=== PATIENT | male | born 1985 | race Hispanic/Latino ===

== ENCOUNTER 2024-08-17 10:47 | Emergency (ER) | payer OTHER, SELFPAY ==
[2024-08-17 11:04] VITALS: BP 125/72; PULSE 68; RESP 20; TEMP 36.8; O2SAT 99
--- NOTE | 2024-08-17 11:06 | ED.URI ---
HPI - URI/Sore Throat General Chief Complaint: Upper Respiratory Infection Stated Complaint: Sore Throat/Cough Time Seen by Provider: 08/17/24 11:28 Source: patient and RN notes reviewed Mode of arrival: ambulatory Limitations: no limitations History of Present Illness HPI Narrative: 39-year-old male presents concern for one-week history of sore throat, cough, fever, aches, chills, sweats. Reports he has been taking Tylenol, TheraFlu and NyQuil. MD elicited complaint: cough and sore throat Related Data Home Medications ?Medication ?Instructions ?Recorded ?Confirmed ?Last Taken ?Type No Home Medications 08/17/24 Unknown History Allergies Allergy/AdvReac Type Severity Reaction Status Date / Time No Known Allergies Allergy Verified 08/17/24 11:08 Review of Systems Review of Systems: CONSTITUTIONAL: Reports malaise, chills, sweats, fever. EYES: Denies visual changes, redness, or discharge. ENT: Reports rhinorrhea, congestion, and sore throat. CARDIOVASCULAR: Denies chest pain, palpitations, or edema. RESPIRATORY: Reports cough. Denies dyspnea. GASTROINTESTINAL: Denies abdominal pain, nausea, vomiting, diarrhea SKIN: Denies rash or itching. MUSCULOSKELETAL: Reports myalgia. NEUROLOGIC: Denies headache. All systems reviewed & are unremarkable except as noted in HPI and below PMFSH Comments At time of signature, agree with nursing past medical, surgical, social and family history. There is no relevant family history pertinent to the presenting complaint Exam Narrative: GENERAL: Well-appearing, well-nourished, and in no acute distress. HEAD: Normocephalic EYES: PERRLA, conjunctivae clear ENT: Nares clear. Mucous membranes moist. TM pearly hollis with sharp light reflex bilaterally; no tragal tenderness. Oropharynx not erythematous without lesions. Tonsils not enlarged and without exudate, no drooling, no hoarseness, no trismus, uvula midline. NECK: Supple. No lymphadenopathy CHEST: Clear to auscultation, breath sounds equal. No wheezing, rhonchi, rales, or stridor. No respiratory distress, speaks in full sentences. HEART: Regular rate and rhythm. No murmur heard. SKIN: Warm, dry, no rash. NEURO: Alert and oriented x3. PSYCH: Normal mood and affect Course Course Emergency Course: Patient is aware of diagnosis, understands and agrees to treatment plan. Anticipatory guidance given. Patient agrees to follow-up as directed and is aware of reasons to seek care at the emergency department. Portions of this record may have been created with voice recognition software Level of Care: Express Care Visit Vital Signs Vital signs: Reviewed. MDM - URI/Sore Throat MDM Narrative Medical decision making narrative: Differential diagnosis considered: Reynolds virus, strep pharyngitis, allergic rhinitis, upper respiratory tract infection, sinusitis, rhinosinusitis, nasopharyngitis. viral pharyngitis, otitis media, otitis externa, pneumonia, bronchitis, viral cough syndrome, viral syndrome, and influenza. Exam findings show no acute concerns or changes; patient is non-toxic appearing and is in no distress. Patient is appropriate for outpatient treatment and follow-up. Lab Data Attestation: I reviewed the patient's lab results. Critical Care Time Critical Care Time Critical Care Time: No Discharge Plan Discharge Clinical Impression: Upper respiratory infection with cough and congestion Patient Disposition: Home, Self-Care Condition: Stable Instructions: Antibiotic Form, Acute Cough (ED) Additional Instructions: Your rapid COVID and flu tests are negative 1) Please follow-up with your primary care doctor in the next 1-2 days. 2) If you have any worsening of symptoms or any other urgent concerns please go to the ER. 3) Please take medications as prescribed and continue taking your home medications as usual. 4) Please read and follow information included in discharge instructions. Patient Language: Armenian Prescriptions: New azithromycin [Zithromax Z-David] 250 mg tablet See Rx Instructions .ROUTE .COMPLEX Qty: 6 0RF Rx Instructions: take 500 mg today (day 1), then 250 mg for 4 days (days 2-5) methylprednisolone [Medrol (David)] 4 mg tablets,dose pack See Rx Instructions .ROUTE .COMPLEX Qty: 21 0RF Rx Instructions: orally per package directions No Action No Home Medications Follow-up/Referrals: Gavin Hill MD [Primary Care Provider] - Stand Alone Forms: Work/School Release IP Time of Disposition: 11:45
[2024-08-17 11:36] LABS: EDCOVIDSCREEN Negative (Negative); EDINFLUASCREEN Negative (Negative); EDINFLUBSCREEN Negative (Negative); EDSTREPNEGPOS1 Negative (Negative)
== END 2024-08-17 12:00 | disposition home or self-care (01) ==
PROVIDERS: Emergency Provider Nurse Practitioner; PCP Family Medicine Adolescent Medicine
DX: J06.9 Acute upper respiratory infection, unspecified (principal); R05.9 Cough, unspecified; Z20.822 Contact with and (suspected) exposure to COVID-19; K21.9 Gastro-esophageal reflux disease without esophagitis
CPT/HCPCS: 87081; 87426; 87804; 87880; 99213; G0463

== ENCOUNTER 2025-01-28 12:23 | Emergency (ER) | payer OTHER, SELFPAY ==
--- OUTSIDE RECORDS SUMMARY | 2025-01-28 12:26 | XMS_ITS | Data Portability ---
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 Plan of Treatment Reminders Order Date Submit Date Provider Last Modified By Organization Details Last Modified Time Details Appointments None recorded. Lab CBC w/ auto diff 2014 015 [facility], [address] [place] [address], [facility] [address], [place], [address], 5 06:23:55 BMP, serum or plasma 2014 015 [facility], [address] [place] [address], [address], [place], [address], 5 06:23:55 amylase + lipase, serum 2014 015 [facility], [address] [place] [address], [facility] [address], [place], [address], 5 10:35:20 H pylori iga Ab, serum 2014 015 [facility], [address] [place] [address], [address], [place], [address], 5 13:12:13 Referral gastroente rologist referral - 30 y/o with persistent epigastric abd pain despite treatment with PPI for over 2 months 2014 015 [facility] Not available 5 18:33:38 Procedures esophagoga stroduoden oscopy with biopsy (PROC) - LUQ pain/nause a 2014 016 [facility] ([facility]), [address] [place], [address], 6 14:29:49 Surgeries None recorded. Imaging upper GI - persistent epigastric abdominal pain for over 2 months despite treatment with PPI 2014 015 [facility], [address], [place], [address], 5 14:38:32 Medication Orders omeprazole 20 mg tablet,del ayed release 2014 015 [facility], [address] [place] [address], [id number], 5 16:38:38 thiamine HCl (vitamin B1) 100 mg tablet 2014 015 [facility], [address] [place] [address], [id number], 5 14:58:46 omeprazole 20 mg tablet,del ayed release 2014 015 [facility], [address] [place] [address], [id number], 5 14:58:46 omeprazole 20 mg tablet,del ayed release 2014 015 [facility], [address] [place] [address], [id number], 5 14:58:46 omeprazole 20 mg tablet,del ayed release 2014 015 [facility], [address] [place] [address], [id number], 5 17:33:14 omeprazole 20 mg tablet,del ayed release 2014 015 [facility], [address] [place], [place], [id number], 5 15:01:05 Zofran 8 mg tablet 2014 015 [facility], [address] [place], [place], [id number], 5 15:01:05 Patient TargetsNo targets recorded. Patient Instructions Encounter Date Encounter Id Patient Instructions Last Modified By Organization Details Last Modified Time 10/31/2014 [id number] gastritis: instrucciones de cuidado - [gastritis: care instructions] yarauz Not available 10/31/2014 15:01:05 aprenda sobre la dieta l quida absoluta - [learning about clear liquid diets] yarauz Not available 10/31/2014 15:01:05 if worsening symptoms or unable to eat anything secondary to pain to seek reevaluation immediately [email or web address] Not available 10/31/2014 15:01:05 Reason for Referral 30 y/o with persistent epiga stric abd pain despite treatment with PPI for over 2 months Referring Physician: Jarrett Velasco, Family Medicine, Encounter Date: 2015 Results Created Date Observation Date Name Description Value Unit Range Abnormal Flag Note LastModifiedBy Organization Detail LastModifiedTime 11/14/19 15 11/16/2014 H pylor i iga Ab, serum H. pylori, IgA abs <9.0 units 0.0-8. 9 NEGAT NICHOLE <9.0 EQUIV OCAL 9.0 - 11.0 POSIT NICHOLE >11.0 Not Available [facility] ([facility]) [address] [facility], [place], [address], 11/16/2014 13:12:13 11/14/19 15 11/15/2014 amyla se, serum or plasm a amylase, serum 44 U/L 31-124 Not Available [facility] ([facility]) [address] [facility], [place], [address], 11/16/2014 13:12:14 11/14/19 15 11/15/2014 lipas e, serum or plasm a lipase, serum 37 U/L 0-59 Not Available [facility] ([facility]) [address] [place], [address], 11/16/2014 13:12:14 01/04/20 15 01/04/2015 CBC w/ auto diff WBC 5.9 x10e3 /uL 3.4-10 .8 Not Available [facility] ([facility]) [address] [place], [address], 01/04/2015 06:23:54 01/04/20 15 01/04/2015 CBC w/ auto diff RBC 4.88 x10e6 /uL 4.14-5 .80 Not Available [facility] ([facility]) [address] [place], [address], 01/04/2015 06:23:54 01/04/20 15 01/04/2015 CBC w/ auto diff hemoglobin 14.4 g/dL 12.6-1 7.7 Not Available [facility] ([facility]) [address] [place], [address], 01/04/2015 06:23:54 01/04/20 15 01/04/2015 CBC w/ auto diff hematocrit 44.0 % 37.5-5 1.0 Not Available [facility] ([facility]) [address] [place], [address], 01/04/2015 06:23:54 01/04/20 15 01/04/2015 CBC w/ auto diff MCV 90 fL 79-97 Not Available [facility] ([facility]) [address] [place], [address], 01/04/2015 06:23:54 01/04/20 15 01/04/2015 CBC w/ auto diff MCH 29.5 pg 26.6-3 3.0 Not Available [facility] ([facility]) [address] [place], [address], 01/04/2015 06:23:54 01/04/20 15 01/04/2015 CBC w/ auto diff MCHC 32.7 g/dL 31.5-3 5.7 Not Available [facility] ([facility]) [address] [facility], [place], [address], 01/04/2015 06:23:54 01/04/20 15 01/04/2015 CBC w/ auto diff RDW 13.5 % 12.3-1 5.4 Not Available [facility] ([facility]) [address] [facility], [place], [address], 01/04/2015 06:23:54 01/04/20 15 01/04/2015 CBC w/ auto diff platelets 244 x10e3 /uL 150-37 9 Not Available [facility] ([facility]) [address] [facility], [place], [address], 01/04/2015 06:23:54 01/04/20 15 01/04/2015 CBC w/ auto diff neutrophils 57 % Not Available [facility] ([facility]) [address] [facility], [place], [address], 01/04/2015 06:23:54 01/04/20 15 01/04/2015 CBC w/ auto diff lymphs 29 % Not Available [facility] ([facility]) [address] [facility], [place], [address], 01/04/2015 06:23:54 01/04/20 15 01/04/2015 CBC w/ auto diff monocytes 9 % Not Available [facility] ([facility]) [address] [place], [address], 01/04/2015 06:23:54 01/04/20 15 01/04/2015 CBC w/ auto diff eos 4 % Not Available [facility] ([facility]) [address] [place], [address], 01/04/2015 06:23:54 01/04/20 15 01/04/2015 CBC w/ auto diff basos 1 % Not Available [facility] ([facility]) [address] [place], [address], 01/04/2015 06:23:54 01/04/20 15 01/04/2015 CBC w/ auto diff immature cells ADMINISTRATION SPECIALIST Not Available [facility] ([facility]) [address] [place], [address], 01/04/2015 06:23:54 01/04/20 15 01/04/2015 CBC w/ auto diff neutrophils (absolute) 3.4 x10e3 /uL 1.4-7. 0 Not Available [facility] ([facility]) [address] [place], [address], 01/04/2015 06:23:54 01/04/20 15 01/04/2015 CBC w/ auto diff lymphs (absolute) 1.7 x10e3 /uL 0.7-3. 1 Not Available [facility] ([facility]) [address] [place], [address], 01/04/2015 06:23:54 01/04/20 15 01/04/2015 CBC w/ auto diff monocytes(ab solute) 0.5 x10e3 /uL 0.1-0. 9 Not Available [facility] ([facility]) [address] [place], [address], 01/04/2015 06:23:54 01/04/20 15 01/04/2015 CBC w/ auto diff eos (absolute) 0.2 x10e3 /uL 0.0-0. 4 Not Available [facility] ([facility]) [address] [place], [address], 01/04/2015 06:23:54 01/04/20 15 01/04/2015 CBC w/ auto diff baso (absolute) 0.0 x10e3 /uL 0.0-0. 2 Not Available [facility] ([facility]) [address] [place], [address], 01/04/2015 06:23:54 01/04/20 15 01/04/2015 CBC w/ auto diff immature granulocytes 0 % Not Available [facility] ([facility]) [address] [place], [address], 01/04/2015 06:23:54 01/04/20 15 01/04/2015 CBC w/ auto diff immature grans (abs) 0.0 x10e3 /uL 0.0-0. 1 Not Available [facility] ([facility]) [address] [place], [address], 01/04/2015 06:23:54 01/04/20 15 01/04/2015 CBC w/ auto diff NRBC ADMINISTRATION SPECIALIST Not Available [facility] ([facility]) [address] [place], [address], 01/04/2015 06:23:54 01/04/20 15 01/04/2015 CBC w/ auto diff hematology comments: ADMINISTRATION SPECIALIST Not Available [facility] ([facility]) [address] [place], [address], 01/04/2015 06:23:54 01/04/20 15 01/04/2015 BMP, serum or plasm a glucose, serum 104 mg/dL 65-99 high Not Available [facility] ([facility]) [address] [place], [address], 01/04/2015 06:23:55 01/04/20 15 01/04/2015 BMP, serum or plasm a BUN 12 mg/dL 6-20 Not Available [facility] ([facility]) [address] [place], [address], 01/04/2015 06:23:55 01/04/20 15 01/04/2015 BMP, serum or plasm a creatinine, serum 0.74 mg/dL 0.76-1 .27 low Not Available [facility] ([facility]) [address] [facility], [place], [address], 01/04/2015 06:23:55 01/04/20 15 01/04/2015 BMP, serum or plasm a eGFR if nonafricn AM 123 mL/mi n/1.7 3 >59 Not Available [facility] ([facility]) [address] [place] [place], [address], 01/04/2015 06:23:55 01/04/20 15 01/04/2015 BMP, serum or plasm a eGFR if africn AM 142 mL/mi n/1.7 3 >59 Not Available [facility] ([facility]) [address] [place] [place], [address], 01/04/2015 06:23:55 01/04/20 15 01/04/2015 BMP, serum or plasm a BUN/creatini ne ratio 16 8-19 Not Available [facility] ([facility]) [address] [place] [place], [address], 01/04/2015 06:23:55 01/04/20 15 01/04/2015 BMP, serum or plasm a sodium, serum 140 mmol/ L 134-14 4 Not Available [facility] ([facility]) [address] [place], [address], 01/04/2015 06:23:55 01/04/20 15 01/04/2015 BMP, serum or plasm a potassium, serum 4.2 mmol/ L 3.5-5. 2 Not Available [facility] ([facility]) [address] [place], [address], 01/04/2015 06:23:55 01/04/20 15 01/04/2015 BMP, serum or plasm a chloride, serum 102 mmol/ L 97-108 Not Available [facility] ([facility]) [address] [place], [address], 01/04/2015 06:23:55 01/04/20 15 01/04/2015 BMP, serum or plasm a carbon dioxide, total 23 mmol/ L 18-29 Not Available [facility] ([facility]) [address] [facility], [place], [address], 01/04/2015 06:23:55 01/04/20 15 01/04/2015 BMP, serum or plasm a calcium, serum 9.5 mg/dL 8.7-10 .2 Not Available [facility] ([facility]) [address] [facility], [place], [address], 01/04/2015 06:23:55 01/16/20 15 01/15/2015 upper GI No observ ation record ed. [email or web address] [facility] [address] [facility], [place], [address], 01/22/2015 17:14:38 Result Notes None recorded. Problems Name Problem SNOMED Code Status Onset Date Resolution Date Notes Provider Name and Address Organization Details Recorded Time Epigastric pain 08108039 Active Jarrett Velasco [facility] Attn: Accountin g,[address] [facility], [place], [address], [facility] 5 14:58:46 Acute gastritis 01144495 Active Jarrett Velasco [facility] Attn: Accountin g,[address] [facility], [place], [address], [facility] 5 14:58:46 Abdominal pain 11099024 Active Rizwana Salomon MD [address] [place], [address], [facility] 5 16:37:57 Nausea 747069583 Active Rizwana Salomon MD [address] [place], [address], [facility] 5 16:37:57 Problem Notes None recorded. Medical Equipment None Reported. Allergies No known drug allergies Medications Name Sig Start Date Stop Date Status Note LastModified by Organization Details LastModified Time thiamine HCl (vitamin B1) 100 mg tablet Take 1 tablet every day by oral route. 015 active Not Available Not Available Not Avai lable Zofran 8 mg tablet Take 1 tablet every 8 hours by oral route as directed for 2 days. 015 active Not Available Not Available Not Avai lable omeprazole 20 mg capsule,molly yed release TAKE 1 CAPSULE BY MOUTH TWO TIMES A DAY FOR STOMACH active Not Available Not Available No t Available omeprazole 20 mg tablet,delay ed release Take 1 tablet every day by oral route before meals. 015 active Not Available Not Available Not Avai lable Vitals Date Recorded Body weight Body mass index (BMI) Body height Body temperature Systolic And Diastolic Provider Name and Address Organization Details Last Updated DateTime 10/31/2014 70376.79 8275 g 23.4 kg/m2 174.625 cm 98.2 [degF] 124/82 mm[Hg] Jacquie Jerry [facility] 5 14:27:35 Date Recorded Body weight Body mass index (BMI) Body height Body temperature Systolic And Diastolic Provider Name and Address Organization Details Last Updated DateTime 11/13/2014 78653.60 3997 g 23.3 kg/m2 174.625 cm 98.7 [degF] 104/70 mm[Hg] Jacquie Jerry [facility] 5 16:38:28 Date Recorded Body weight Body temperature Body mass index (BMI) Body height Systolic And Diastolic Provider Name and Address Organization Details Last Updated DateTime 2015 04365.65 1685 g 97.8 [degF] 22.4 kg/m2 174.625 cm 116/72 mm[Hg] NATHANIEL Momin [facility] 5 13:02:08 Date Recorded Body height Body mass index (BMI) Body weight Heart rate Systolic And Diastolic Provider Name and Address Organization Details Last Updated DateTime 04/18/2015 172.72 cm 24.2 kg/m2 98944.82 7593 g 54 /min 116/73 mm[Hg] Aleena Beyer [facility] 04/18/2015 15:39:56 Social History Question Answer Notes LastModified by Organizat ion Details LastModified Time Tobacco Smoking Status Never Smoker Jacquie kumar [facility] 10/31/2014 14:27:35 What Is Your Level Of Caffeine Consumption? None [email or web address] Information not available 2015 How Much Tobacco Do You Chew? None Information not available 2015 What Type Of Diet Are You Following? REGULAR [email or web address] Information not available 2015 Education Less Than 8th Grade [email or web address] Information not available 2015 Are There Any Guns Present In Your Home? No Information not available 2015 Hard Of Hearing Or Deaf In One Or Both Ears? No [email or web address] Information not available 2015 Legally Blind In One Or Both Eyes? No [email or web address] Information not available 2015 Marital Status Informatio n not available 2015 Seat Belts Used Routinely Yes [email or web address] Information not available 2015 Smoke Alarm In Home Yes [email or web address] Information not available 2015 How Much Tobacco Do You Smoke? No [email or web address] Information not available 2015 General Stress Level Medium [email or web address] Information not available 2015 Sex: Unknown Functional Status Question Answer Note LastModified by Organizat ion Details LastModified Time What is your level of alcohol consumption? 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 Occasional [email or web address] Information not available 2015 Mental Status None recorded. Family History Relationship Description Onset Age of this Age Resolved Age Notes LastModified by Organization Details LastModified Time Mother Fit and well Not availa ble 04/18/2015 15:40:43 Father Fit and well Not availa ble 04/18/2015 15:40:43 Medical History Condition Response Diabetes N Hyperlipidemia N Heart Disease N Seizures/Epilepsy N Hypertension N Past Encounters Encounter ID Performer Location Encounter Start Date Encounter Closed Date Diagnosis/Indication Diagnosis SNOMED-CT Code Diagnosis ICD10 Code Diagnosis Note [id number] Jason Page MD [facility] [address], [place] [address] 10/31/2014 14:17:27 11/05/2014 17:16:33 Epigastric pain 98314289 Acute gastritis 94509822 [id number] Jason Page MD [facility] [address] [place] [address] 11/13/2014 16:04:26 11/14/2014 17:47:03 Epigastric pain 04135272 take Omeprazole 20mg twice daily 1/2 hour before meals do not go to bed soon after eating avoid spicey foods, or any aggravatin g foods Acute gastritis 54399659 [id number] Jason Page MD [facility] [address] [place] [address] 2015 12:46:35 01/04/2015 14:38:31 Acute gastritis 22716094 Epigastric pain 07765254 take Omeprazole 20mg twice daily 1/2 hour before meals do not go to bed soon after eating avoid spicey foods, or any aggravatin g foods History of alcohol abuse [id number] Rizwana Salomon MD [facility] [address] [place] [address] 04/18/2015 15:03:50 04/22/2015 12:30:58 Abdominal pain 86021960 R10.12 Nausea 870055174 R11.0 Health Concerns Section Related Observation LastModified by Organization Detai ls LastModified Time None Recorded Concern Status LastModified by Organization Details LastModified Time None Recorded Advance Directives Directive None Recorded Payers Insurance Date Sequence Insurance Name Policy Number Policy Lau Covered Member ID Lau Member ID Guarantor Name 10/31/2014 SLIDING FEE SCHEDULE - DISCOUNT Héctor Ochoa 04/14/2017 1 *SELF PAY* Be yahaira Ochoa 04/14/2017 SLIDING FEE SCHEDULE - DISCOUNT Héctor Ochoa Notes Date Note Type Note Provider Name and Address Organization Details Recorded Time 10/31/2014 text/html He use to drink a lot of beers and spicy foods especially in the weekend. However, he has stopped for the last month. He feels hungry but cant eat secondary to getting mid epigastric tenderness. Hi s/s present for 1 week. He has not tried any medications at home. Denies blood in the stool or per os. LOAN Padilla Attn: [address]ing[address] [place], [address], [facility] 10/31/2014 15:01:15 11/13/2014 text/html epigastric pain, gastritis f/u; a little better but still has symptoms especially early am. However, he has only been taking the capsule once daily . Has a lot of heartburn. ELA Padilla Attn: [address]ing[address] [facility], [place], [address], [facility] 11/14/2014 13:44:15 2015 text/html Gastritis F/u- States that he is no longer drinking soda, coffee, or beer. He states that his stomach still hurts a little, but the pain has gotten better. He continues to have mid epigastric abdominal pain despite taking PPI. He doesn't feel its related to any foods as he notices symptoms when stomach empty or with food. He does admit that he drank heavily since he was 12 y/o. He stopped alcohol intake 3 months ago. ELA Padilla Attn: [address]ing[address] [facility], [place], [address], [facility] 2015 14:59:48 04/18/2015 text/html Symptoms better when alcohol use is reduced. UGI revealed GERD and H/H. Better on PPI but sx persist. Rizwana Salomon MD [address] [place], [address], [facility] 04/18/2015 16:38:33
--- OUTSIDE RECORDS SUMMARY | 2025-01-28 12:26 | XMS_ITS | Clinical Summary ---
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 Name Role Phone Unavailable Primary Care Provider Unavailabl e Social History Tobacco Use Types Packs/Day Years Used Date Smoking Tobacco: Never Assessed Sex and Gender Information Value Date Recorded Sex Assigned at Not on file Legal Sex Male 10:03 AM CDT Gender Identity Not on file Sexual Orientation Not on file Plan of Treatment Health Maintenance Due Date Last Done Comments Hepatitis C Virus (HCV) Screening 1984 TdaP Immunization 1984 Hepatitis B Immunization (1 of 3 - 19+ 3-dose series) 01/02/2003 Influenza Immunization (#1) 2024 SARS-COV-2 Immunization (2 - 2023- season) 2024 09/22/2020 Respiratory Syncytial Virus (RSV) Immunization (Adult) (1 - 1-dose 75+ series) 01/02/2059 Meningococcal Immunization (ACWY) Aged Out No longer eligible based on patient's age to complete this topic Pneumococcal Immunization Combined Aged Out No longer eligible based on patient's age to complete this topic Rotavirus Immunization Aged Out No lo nger eligible based on patient's age to complete this topic
--- OUTSIDE RECORDS SUMMARY | 2025-01-28 12:27 | XMS_ITS | Data Portability ---
Author Organization [place] - [facility], Main Office Address [address] [place] [id number] Assessment No assessment recorded. Plan of Treatment Reminders Order Date Submit Date Provider Last Modified By Organization Details Last Modified Time Details Appointments None recorded. Lab CMP, serum or plasma 2024 025 [facility] [address] [place] [address], [id number], 12:20:41 CBC w/ auto diff 2024 025 [facility] ([place]), [address] [place] [address], [address], 12:20:41 TSH, ultra-sensi tive, serum 2024 025 [facility] [place], [address], 12:20:44 HbA1c (hemoglobin A1c), blood 2024 025 [facility] [address] [place] [address], [address], 5 12:20:43 lipid panel, serum 2024 025 [facility] [address] [place] [address], [address], 5 12:20:42 urinalysis, dipstick [address] [facility] [address], [address], [place], [address], 15:00:22 lipase, serum or plasma 2024 025 [facility] ([place]), [address], [place], [address], 12:20:44 Referral None recorded. Procedures None recorded. Surgeries None recorded. Imaging None recorded. Medication Orders omeprazole 20 mg capsule,del ayed release 2024 025 [facility] [address], [address], [place], [place], [id number], 14:36:34 Patient TargetsNo targets recorded. Patient Instructions Encounter Date Encounter Id Patient Instructions Last Modified By Organization Details Last Modified Time 01/22/2025 [id number] headache: care instructions [email or web address] Not available 01/22/2025 14:35:34 high blood pressure: care instructions [email or web address] Not available 01/22/2025 14:36:10 Reason for Referral None Reported. Results Created Date Observation Date Name Description Value Unit Range Abnormal Flag Note LastModifiedBy Organization Detail LastModifiedTime 01/23/2001/23/2025 CBC WITH DIFFE RENTI AL/PL ATELE T WBC 5.7 x10e3 /uL 3.4-10 .8 normal Not Available [facility] ([facility]) [address] [facility], [place], [address], 01/23/2025 12:20:41 01/23/20 25 01/23/2025 CBC WITH DIFFE RENTI AL/PL ATELE T RBC 5.24 x10e6 /uL 4.14-5 .80 normal Not Available [facility] ([facility]) [address] [facility], [place], [address], 01/23/2025 12:20:41 01/23/20 25 01/23/2025 CBC WITH DIFFE RENTI AL/PL ATELE T hemoglobin 16.1 g/dL 13.0-1 7.7 normal Not Available [facility] ([facility]) [address] [place], [address], 01/23/2025 12:20:41 01/23/20 25 01/23/2025 CBC WITH DIFFE RENTI AL/PL ATELE T hematocrit 50.0 % 37.5-5 1.0 normal Not Available [facility] ([facility]) [address] [place], [address], 01/23/2025 12:20:41 01/23/20 25 01/23/2025 CBC WITH DIFFE RENTI AL/PL ATELE T MCV 95 fL 79-97 normal Not Available [facility] ([facility]) [address] [facility], [place], [address], 01/23/2025 12:20:41 01/23/20 25 01/23/2025 CBC WITH DIFFE RENTI AL/PL ATELE T MCH 30.7 pg 26.6-3 3.0 normal Not Available [facility] ([facility]) [address] [place], [address], 01/23/2025 12:20:41 01/23/20 25 01/23/2025 CBC WITH DIFFE RENTI AL/PL ATELE T MCHC 32.2 g/dL 31.5-3 5.7 normal Not Available [facility] ([facility]) [address] [place], [address], 01/23/2025 12:20:41 01/23/20 25 01/23/2025 CBC WITH DIFFE RENTI AL/PL ATELE T RDW 13.2 % 11.6-1 5.4 Not Available [facility] ([facility]) [address] [place], [address], 01/23/2025 12:20:41 01/23/20 25 01/23/2025 CBC WITH DIFFE RENTI AL/PL ATELE T platelets 246 x10e3 /uL 150-45 0 normal Not Available [facility] ([facility]) [address] [facility], [place], [address], 01/23/2025 12:20:41 01/23/20 25 01/23/2025 CBC WITH DIFFE RENTI AL/PL ATELE T neutrophils 56 % not estab. normal Not Available [facility] ([facility]) [address] [facility], [place], [address], 01/23/2025 12:20:41 01/23/20 25 01/23/2025 CBC WITH DIFFE RENTI AL/PL ATELE T lymphs 30 % not estab. normal Not Available [facility] ([facility]) [address] [facility], [place], [address], 01/23/2025 12:20:41 01/23/20 25 01/23/2025 CBC WITH DIFFE RENTI AL/PL ATELE T monocytes 10 % not estab. normal Not Available [facility] ([facility]) [address] [facility], [place], [address], 01/23/2025 12:20:41 01/23/20 25 01/23/2025 CBC WITH DIFFE RENTI AL/PL ATELE T eos 2 % not estab. normal Not Available [facility] ([facility]) [address] [facility], [place], [address], 01/23/2025 12:20:41 01/23/20 25 01/23/2025 CBC WITH DIFFE RENTI AL/PL ATELE T basos 1 % not estab. normal Not Available [facility] ([facility]) [address] [facility], [place], [address], 01/23/2025 12:20:41 01/23/20 25 01/23/2025 CBC WITH DIFFE RENTI AL/PL ATELE T immature cells MASTER CHEF Not Available [facility] ([facility]) [address] [facility], [place], [address], 01/23/2025 12:20:41 01/23/20 25 01/23/2025 CBC WITH DIFFE RENTI AL/PL ATELE T neutrophils (absolute) 3.2 x10e3 /uL 1.4-7. 0 normal Not Available [facility] ([facility]) [address] [place], [address], 01/23/2025 12:20:41 01/23/20 25 01/23/2025 CBC WITH DIFFE RENTI AL/PL ATELE T lymphs (absolute) 1.7 x10e3 /uL 0.7-3. 1 normal Not Available [facility] ([facility]) [address] [place], [address], 01/23/2025 12:20:41 01/23/20 25 01/23/2025 CBC WITH DIFFE RENTI AL/PL ATELE T monocytes(ab solute) 0.6 x10e3 /uL 0.1-0. 9 normal Not Available [facility] ([facility]) [address] [place], [address], 01/23/2025 12:20:41 01/23/20 25 01/23/2025 CBC WITH DIFFE RENTI AL/PL ATELE T eos (absolute) 0.1 x10e3 /uL 0.0-0. 4 normal Not Available [facility] ([facility]) [address] [place], [address], 01/23/2025 12:20:41 01/23/20 25 01/23/2025 CBC WITH DIFFE RENTI AL/PL ATELE T baso (absolute) 0.0 x10e3 /uL 0.0-0. 2 normal Not Available [facility] ([facility]) [address] [place], [address], 01/23/2025 12:20:41 01/23/20 25 01/23/2025 CBC WITH DIFFE RENTI AL/PL ATELE T immature granulocytes 1 % not estab. Not Available [facility] ([facility]) [address] [facility], [place], [address], 01/23/2025 12:20:41 01/23/20 25 01/23/2025 CBC WITH DIFFE RENTI AL/PL ATELE T immature grans (abs) 0.1 x10e3 /uL 0.0-0. 1 Not Available [facility] ([facility]) [address] [facility], [place], [address], 01/23/2025 12:20:41 01/23/20 25 01/23/2025 CBC WITH DIFFE RENTI AL/PL ATELE T NRBC MASTER CHEF Not Available [facility] ([facility]) [address] [facility], [place], [address], 01/23/2025 12:20:41 01/23/20 25 01/23/2025 CBC WITH DIFFE RENTI AL/PL ATELE T hematology comments: MASTER CHEF Not Available [facility] ([facility]) [address] [facility], [place], [address], 01/23/2025 12:20:41 01/23/20 25 01/23/2025 COMP. METAB OLIC PANEL (14) glucose 84 mg/dL 70-99 normal Not Available [facility] ([facility]) [address] [facility], [place], [address], 01/23/2025 12:20:41 01/23/20 25 01/23/2025 COMP. METAB OLIC PANEL (14) BUN 23 mg/dL 6-24 normal Not Available [facility] ([facility]) [address] [facility], [place], [address], 01/23/2025 12:20:41 01/23/20 25 01/23/2025 COMP. METAB OLIC PANEL (14) creatinine 1.00 mg/dL 0.76-1 .27 normal Not Available [facility] ([facility]) [address] [place], [address], 01/23/2025 12:20:41 01/23/20 25 01/23/2025 COMP. METAB OLIC PANEL (14) eGFR 97 mL/mi n/1.7 3 >59 normal Not Available [facility] ([facility]) [address] [facility], [place], [address], 01/23/2025 12:20:41 01/23/20 25 01/23/2025 COMP. METAB OLIC PANEL (14) BUN/creatini ne ratio 23 9-20 above high normal Not Available [facility] ([facility]) [address] [facility], [place], [address], 01/23/2025 12:20:41 01/23/20 25 01/23/2025 COMP. METAB OLIC PANEL (14) sodium 142 mmol/ L 134-14 4 normal Not Available [facility] ([facility]) [address] [facility], [place], [address], 01/23/2025 12:20:41 01/23/20 25 01/23/2025 COMP. METAB OLIC PANEL (14) potassium 4.7 mmol/ L 3.5-5. 2 normal Not Available [facility] ([facility]) [address] [facility], [place], [address], 01/23/2025 12:20:41 01/23/20 25 01/23/2025 COMP. METAB OLIC PANEL (14) chloride 104 mmol/ L 96-106 normal Not Available [facility] ([facility]) [address] [facility], [place], [address], 01/23/2025 12:20:41 01/23/20 25 01/23/2025 COMP. METAB OLIC PANEL (14) carbon dioxide, total 21 mmol/ L 20-29 normal Not Available [facility] ([facility]) [address] [facility], [place], [address], 01/23/2025 12:20:41 01/23/20 25 01/23/2025 COMP. METAB OLIC PANEL (14) calcium 9.9 mg/dL 8.7-10 .2 normal Not Available [facility] ([facility]) [address] [place], [address], 01/23/2025 12:20:41 01/23/20 25 01/23/2025 COMP. METAB OLIC PANEL (14) protein, total 7.7 g/dL 6.0-8. 5 normal Not Available [facility] ([facility]) [address], [place], [address], 01/23/2025 12:20:41 01/23/20 25 01/23/2025 COMP. METAB OLIC PANEL (14) albumin 4.9 g/dL 4.1-5. 1 normal Not Available [facility] ([facility]) [address] [place], [address], 01/23/2025 12:20:41 01/23/20 25 01/23/2025 COMP. METAB OLIC PANEL (14) globulin, total 2.8 g/dL 1.5-4. 5 Not Available [facility] ([facility]) [address] [place] [place], [address], 01/23/2025 12:20:41 01/23/20 25 01/23/2025 COMP. METAB OLIC PANEL (14) bilirubin, total 0.5 mg/dL 0.0-1. 2 normal Not Available [facility] ([facility]) [address] [place], [address], 01/23/2025 12:20:41 01/23/20 25 01/23/2025 COMP. METAB OLIC PANEL (14) alkaline phosphatase 95 IU/L 44-121 normal Not Available [facility] ([facility]) [address] [facility] [place], [address], 01/23/2025 12:20:41 01/23/20 25 01/23/2025 COMP. METAB OLIC PANEL (14) AST (SGOT) 36 IU/L 0-40 normal Not Available [facility] ([facility]) [address] [place], [address], 01/23/2025 12:20:41 01/23/20 25 01/23/2025 COMP. METAB OLIC PANEL (14) ALT (SGPT) 40 IU/L 0-44 normal Not Available [facility] ([facility]) [address] [place], [address], 01/23/2025 12:20:41 01/23/20 25 01/23/2025 LIPID PANEL W/ CHOL/ HDL RATIO cholesterol, total 224 mg/dL 100-19 9 above high normal Not Available [facility] ([facility]) [address] [place], [address], 01/23/2025 12:20:42 01/23/20 25 01/23/2025 LIPID PANEL W/ CHOL/ HDL RATIO triglyceride s 109 mg/dL 0-149 normal Not Available [facility] ([facility]) [address] [place], [address], 01/23/2025 12:20:42 01/23/20 25 01/23/2025 LIPID PANEL W/ CHOL/ HDL RATIO HDL cholesterol 61 mg/dL >39 normal Not Available [facility] ([facility]) [address] [place], [address], 01/23/2025 12:20:42 01/23/20 25 01/23/2025 LIPID PANEL W/ CHOL/ HDL RATIO VLDL cholesterol juaquin 19 mg/dL 5-40 Not Available [facility] ([facility]) [address] [place], [address], 01/23/2025 12:20:42 01/23/20 25 01/23/2025 LIPID PANEL W/ CHOL/ HDL RATIO LDL chol calc ([facility]) 144 mg/dL 0-99 above high normal Not Available [facility] ([facility]) [address] [place], [address], 01/23/2025 12:20:42 01/23/20 25 01/23/2025 LIPID PANEL W/ CHOL/ HDL RATIO LDL calc comment: MASTER CHEF Not Available [facility] ([facility]) [address] [place], [address], 01/23/2025 12:20:42 01/23/20 25 01/23/2025 LIPID PANEL W/ CHOL/ HDL RATIO T. chol/HDL ratio 3.7 ratio 0.0-5. 0 T. Chol/ HDL Ratio Men Women 1/2 Avg.R isk 3.4 3.3 Avg.R isk 5.0 4.4 2X Avg.R isk 9.6 7.1 3X Avg.R isk 23.4 11.0 Not Available [facility] ([facility]) [address] [place], [address], 01/23/2025 12:20:42 01/23/20 25 01/23/2025 HEMOG LOBIN A1C hemoglobin A1C 5.8 % 4.8-5. 6 above high normal Predi abete s: 5.7 - 6.4 Diabe feroz: >6.4 Glyce gino contr ol for adult s with diabe feroz: <7.0 Not Available [facility] ([facility]) [address] [place], [address], 01/23/2025 12:20:43 01/23/20 25 01/23/2025 TSH TSH 2.080 uIU/m L 0.450- 4.500 normal Not Available [facility] ([facility]) [address] [place], [address], 01/23/2025 12:20:43 01/23/20 25 01/23/2025 LIPAS E lipase 28 U/L 13-78 normal Not Available [facility] ([facility]) [address] [place], [address], 01/23/2025 12:20:44 01/23/20 25 01/22/2025 urina lysis , dipst ick Color Yellow Not Available [facility] [address], [place], [address], 01/22/2025 14:18:59 01/23/20 25 01/22/2025 urina lysis , dipst ick Appearance Clear Not Available [facility] [address], [place], [address], 01/22/2025 14:18:59 01/23/20 25 01/22/2025 urina lysis , dipst ick Leukocytes negati ve Not Available [facility] [address], [place], [address], 01/22/2025 14:18:59 01/23/20 25 01/22/2025 urina lysis , dipst ick Nitrites negati ve Not Available [facility] [address], [place], [address], 01/22/2025 14:18:59 01/23/20 25 01/22/2025 urina lysis , dipst ick Urobilinogen Normal (0.2) Not Available [facility] [address], [place], [address], 01/22/2025 14:18:59 01/23/20 25 01/22/2025 urina lysis , dipst ick Protein negati ve Not Available [facility] [address] [facility], [place], [address], 01/22/2025 14:18:59 01/23/20 25 01/22/2025 urina lysis , dipst ick pH 6.5 Not Available [facility] [address] [facility], [place], [address], 01/22/2025 14:18:59 01/23/20 25 01/22/2025 urina lysis , dipst ick Blood negati ve Not Available [facility] [address] [facility], [place], [address], 01/22/2025 14:18:59 01/23/2001/22/2025 urina lysis , dipst ick Specific [place] 1.015 Not Available [facility] [address] [facility], [place], [address], 01/22/2025 14:18:59 01/23/20 25 01/22/2025 urina lysis , dipst ick Ketone negati ve Not Available [facility] [address] [facility], [place], [address], 01/22/2025 14:18:59 01/23/20 25 01/22/2025 urina lysis , dipst ick Bilirubin negati ve Not Available [facility] [address] [facility], [place], [address], 01/22/2025 14:18:59 01/23/2001/22/2025 urina lysis , dipst ick Glucose negati ve Not Available [facility] [address] [facility], [place], [address], 01/22/2025 14:18:59 Result Notes None recorded. 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 Procedures Surgical History Date Name Laterality Status Provider Name and Address Organization Details Recorded Time no surgical history completed Marnie Willson MD [address], [place], [address], [facility] 01/22/2025 14:16:25 Imaging Results None recorded. Procedure Notes None recorded. Medical Equipment None Reported. Allergies No known drug allergies Medications Name Sig Start Date Stop Date Status Note LastModified by Organization Details LastModified Time cetirizine 10 mg tablet TAKE 1 TABLET BY MOUTH DAILY 01/22 completed Not Available Not Available Not Available omeprazole 20 mg capsule,del ayed release Take 1 capsule every day by oral route. 2024 active Not Available Not Available Not Avai lable levofloxaci n 500 mg tablet TAKE 1 TABLET BY MOUTH DAILY 01/22 completed Not Available Not Available Not Available methylpredn isolone 4 mg tablets in a dose pack FOLLOW PACKAGE DIRECTION S 01/22 completed Not Available Not Available Not Available Vitals Date Recorded Body weight Body mass index (BMI) Body height Respiratory rate Body temperature Oxygen saturation Oxygen saturation in Arterial blood by Pulse oximetry Heart rate Systolic And Diastolic Provider Name and Address Organization Details Last Updated DateTime 5 [address].9 6 g 25.6 kg/m2 172.72 cm 20 /min 97.8 [degF] 98 % 98 % 80 /min 142/84 mm[Hg] Shanell Farmer er [facility] 14:05:22 Social History Question Answer Notes LastModified by Organizat ion Details LastModified Time Tobacco Smoking Status Former Smoker SocialHist oryQuestio n: 'Tobacco Use/Smokin g'; SocialHist oryRespons e: 'Are you a: light tobacco smoker'; Shanell Garcia null, [place] - [facility] 01/22/2025 14:03:41 What Is Your Level Of Caffeine Consumption? Occasional [email or web address] Information not available 01/22/2025 What Type Of Diet Are You Following? REGULAR [email or web address] Information not available 01/22/2025 When Did You Quit Smoking? 1-5yearssincel louise Quit 2022 [email or web address] Information not available 01/22/2025 Cigar Smoking No Informat ion not available 01/22/2025 What Was The Date Of Your Most Recent Tobacco Screening? 01/22/2025 Information not available 01/22/2025 What Is Your Current Pack Years? 10-19packyears [email or web address] Information not available 01/22/2025 What Is Your Relationship Status? [email or web address] Information not available 01/22/2025 How Much Tobacco Do You Smoke? 0.25 PPD Information not available 01/22/2025 Has Tobacco Cessation Counseling Been Provided? Yes Information not available 01/22/2025 On What Date Was Tobacco Cessation Counseling Provided? 01/22/2025 Information not available 01/22/2025 How Many Years Have You Smoked Tobacco? 25 Information not available 01/22/2025 Sex: Unknown Functional Status Question Answer Note LastModified by Organizat ion Details LastModified Time How many times per week do you consume alcohol? 1-2 times per week 3-4 beers once or twice a week--was a heavier drinker, but cut back 06/2024 [email or web address] Information not available 01/22/2025 Do you use any illicit or recreational drugs? No [email or web address] Information not available 01/22/2025 Do you or have you ever used any other forms of tobacco or nicotine? No SocialHist oryQuestio n: 'Tobacco use other than smoking'; SocialHist oryRespons e: 'Are you an other tobacco user? No'; [email or web address] Information not available 07/12/2024 What is your level of alcohol consumption? Occasional [email or web address] Information not available 01/22/2025 Mental Status None recorded. Family History Nothing Reported Notes:Paternal Grandmother d eceased, lung Maternal grandfather, throat cancer maternal grandmother, alive, diabetes mother, alive, healthy father, alive, migraines 1 brother (Boy) healthy 2 sisters - healthy 4 sons, healthy Medical History No medical history recorded. Past Encounters Encounter ID Performer Location Encounter Start Date Encounter Closed Date Diagnosis/Indication Diagnosis SNOMED-CT Code Diagnosis ICD10 Code Diagnosis Note [id number] Marnie Willson MD [facility] [address] [place] [address] 01/22/2025 14:00:06 01/22/2025 14:45:38 Physical examination 9263348 Z00.00 Routine age-approp riate anticipato ry guidance was given, including discussion of recommende d screening tests and immunizati ons. He reports he is up-to-date on tetanus. Will check labs today and I will call him with results. His blood pressure is elevated today and is consistent with his recent reading at a local pharmacy. He is given a handout on hypertensi on and a low-sodium diet and advised to purchase or borrow a blood pressure cuff to monitor his blood pressure more closely at home over the next few weeks. I discussed signs of acutely worsening symptoms and when it would be appropriat e to go to the emergency room instead.He is given a refill of omeprazole and I discussed lifestyle changes to reduce GERD symptoms as well. He will try to track down where he had prior imaging, as he most likely has a hiatal hernia.He voiced understand ing and agreement with plan. Questions were answered to his satisfacti on. Heartburn 68379217 R12 Acute headache 002644445 R51.9 Health Concerns Section Related Observation LastModified by Organization Detai ls LastModified Time None Recorded Concern Status LastModified by Organization Details LastModified Time None Recorded Advance Directives Directive None Recorded Payers Insurance Date Sequence Insurance Name Policy Number Policy Lau Covered Member ID Lau Member ID Guarantor Name 01/22/2025 [facility] [employer] - [employer] [facility] 42 AND 110 - ALL - PLAN PARTICIPANT - (MOVED-BILLED) UNKNOWN Héctor Ochoa NO_INS_NU ELYSE[place]_DAVID Weaver 01/22/2025 [place] [id number] AND 110 - ALL - PLAN PARTICIPANT - (MOVED-BILLED) UNKNOWN Héctor Ochoa NO_INS_NU [place]BER_AVAI LABLE [place] 01/22/2025 [facility] 42 AND 110 - ALL - PLAN PARTICIPANT - (MOVED-BILLED) UNKNOWN Héctor Ochoa Weaver UNKNOWN [place] Weaver 01/22/2025 [facility] 42 AND 110 - ALL - PLAN PARTICIPANT - (MOVED-BILLED) UNKNOWN Héctor Ochoa Weaver UNKNOWN [place] Weaver 01/22/2025 [facility] 42 AND 110 - ALL - PLAN PARTICIPANT - (MOVED-BILLED) UNKNOWN Héctor Ochoa Weaver UNKNOWN [place] Weaver 01/22/2025 [facility] 42 AND 110 - ALL - PLAN PARTICIPANT - (MOVED-BILLED) UNKNOWN Héctor Ochoa Weaver UNKNOWN [place] 01/22/2025 1 *SELF PAY* UNKNOWN [place] UNKNOWN [place] 01/22/2025 1 *SELF PAY* UNKNOWN [place] UNKNOWN [place] 01/22/2025 [facility] 42 AND 110 - ALL - PLAN PARTICIPANT - (MOVED-BILLED) UNKNOWN Héctor Ochoa Weaver UNKNOWN [place] 01/22/2025 [place] [id number] AND 110 - ALL - PLAN PARTICIPANT - (MOVED-BILLED) UNKNOWN [place] UNKNOWN [place] 01/22/2025 [place] [id number] AND 110 - ALL - PLAN PARTICIPANT - (MOVED-BILLED) UNKNOWN Héctor Ochoa Weaver NO_INS_NU MBER_AVAI LABANA LILIA [place] 01/22/2025 [facility] 42 AND 110 - ALL - PLAN PARTICIPANT - (MOVED-BILLED) UNKNOWN Héctor Championrera UNKNOWN Héctor Weaver Notes Date Note Type Note Provider Name and Address Organization Details Recorded Time 01/22/2025 text/html He is here for a physical exam. He has had a headache for the past week. He went to a pharmacy a few days ago and checked his blood pressure and it was 142/80. He has no prior history of hypertension. He does have a history of migraines when he was younger but has been several years since he had a migraine. He denies any change in diet, exercise, or stress level. He does not take any supplements and denies recent use of alcohol or any history of illicit drugs. He had eliminated caffeine several weeks prior to onset of headache. He has occasional lightheadedness but denies rotary vertigo, syncope, blurred or double vision. He gets some light sensitivity when the headache is severe, but it is currently dull and mild. The headache will start in the morning and is typically frontal and right sided and then radiates over the entire head. He denies nausea, vomiting, mental status changes, numbness, tingling, or weakness with these headaches. He has tried [id number] Tylenol with partial relief. He denies history of trauma or recent travel or sick contacts. He denies nasal congestion, facial pressure, or URI symptoms. He rates the pain as mild and has never had to miss work for the headache. The headache does not keep him up at night or wake him from sleep.He has a history of GERD and was on omeprazole but ran out of this several months ago and has had more frequent breakthrough heartburn. He has been trying [id number] Tums with only partial relief. He had some sort of imaging test several years ago and was told he had some kind of hernia. Marnie Willson MD [address], [place], [address], [place] [facility] 01/28/2025 10:01:15
[2025-01-28 12:29] VITALS: BP 131/91; PULSE 50; RESP 16; TEMP 36.4; O2SAT 98
[2025-01-28 12:50] VITALS: BP 116/72; PULSE 62; RESP 20; O2SAT 100
--- NOTE | 2025-01-28 12:50 | ECG_ITS ---
Test Date: 2025-01-28 13:03:57 Measurements Intervals [place] Rate: 54 P: 68 VT: 195 QRS: 49 QRSD: 105 T: 28 QT: 416 QTc: 394 Interpretive Statements SINUS BRADYCARDIA OTHERWISE UNREMARKABLE ELECTROCARDIOGRAM No previous ECG available for comparison Electronically Signed On 01-29-2025 09:57:35 CDT by Brett Stevens M.D.
[2025-01-28 13:29] LABS: Hematocrit 43.3 % (42.0-52.0); Hemoglobin 14.4 g/dL (14.0-18.0); Immature Granulocyte Percent A 0.4 % (0-0.5); Lymphocytes Absolute Auto 1.78 K/mm3 (0.9-3.2); Mean Corpuscular HGB Conc 33.3 g/dl (32-36); Mean Corpuscular Hemoglobin 30.8 pg (26-34); Mean Corpuscular Volume 92.7 fl (80-100); Nucleated Red Blood Cells Absolute Auto 0.000 K/mm3 (0.0-0.012); Nucleated Red Blood Cells Perc 0.0 % (0.0-0.2); Platelet Count Result 200 k/mm3 (150-375); Red Blood Count 4.67 M/mm3 (4.6-6.20); White Blood Count 5.3 K/mm3 (4.5-10.0)
--- OUTSIDE RECORDS SUMMARY | 2025-01-28 13:31 | XMS_ITS | Clinical Summary ---
Author Organization [facility] Address [address] [place] [id number] Care Team Providers Care Rigging Engineer Name Role Phone Unavailable Primary Care Provider [...]
[2025-01-28 13:40] LABS: Alanine Aminotransferase 53 U/L (6-50); Albumin Level 4.6 g/dL (3.5-5.1); Alkaline Phosphatase 68 U/L (38-126); Anion Gap 7 mmol/L (4-12); Aspartate Amino Transferase 46 U/L (17-59); Bilirubin,Total 0.5 mg/dL (0.2-1.3); Blood Urea Nitrogen 15 mg/dL (9-20); Calcium 9.2 mg/dL (8.4-10.2); Carbon Dioxide 27 mmol/L (22-30); Chloride 105 mmol/L (98-107); Estimated CRCL calculation 105 ml/min; Estimated Glomerular Filt Rate > 60; Glucose 105 mg/dL (65-110); Potassium 4.4 mmol/L (3.4-5.0); Sodium 139 mmol/L (137-145); Total Protein 7.8 g/dL (6.3-8.2)
[2025-01-28] MEDS: METOCLOPRAMIDE HCL INJ 10 MG/2 ML VIAL IV PUSH (13:59)
[2025-01-28] MEDS: LACTATED RINGERS 1,000 ML 999 ML IV CONT (13:59)
[2025-01-28] MEDS: MAGNESIUM SULF 2 GM/WATER 50ML 2 GM/50 ML BAG IVPB (13:59)
[2025-01-28] MEDS: dexAMETHasone SOD PHOS INJ 10 MG/ML 1 ML VIAL BY MOUTH (14:00)
[2025-01-28] MEDS: KETOROLAC 15 MG/ML VIAL (*BKC) IV PUSH (14:00)
--- NOTE | 2025-01-28 14:13 | ED_ITS ---
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 He talked to his partner, he is continuing to have this headache and earlier had an area in his left eye that looked like a spot, similar to his prior ocular migraines, which has since resolved. His doctor asked him to be evaluated in the emergency room. Related Data Allergies Allergy/AdvReac Type Severity Reaction Status Date / Time No Known Allergies Allergy Verified 01/28/25 12:32 Review of Systems 2 Review of Systems: All systems reviewed & are unremarkable except as noted in HPI and below Exam 2 Narrative: EXAMINATION OF ORGAN SYSTEMS/BODY AREAS: Constitutional: Vital signs per nursing GENERAL:[No acute distress, non-toxic appearing.] HEAD: Normal with no signs of head trauma. EYES: EOMI, conjunctiva normal, PERRL ENT: Hearing grossly intact LUNGS: Nonlabored breathing. HEART: [Regular rate and rhythm] ABD: [Soft], [nontender to palpation] EXT: Normal range of motion SKIN: [No rashes or lesions.] NEURO: [Alert and oriented x 3. No focal sensory or strength deficits.] Ambulating with normal steady gait. No facial droop. Speaking with clear speech. PSYCH: Normal affect Course Vital Signs Vital signs: Vital Signs Temperature 97.6 F 01/28/25 12:29 Pulse Rate 50 L 01/28/25 12:29 Respiratory Rate 16 01/28/25 12:29 Blood Pressure 131/91 H 01/28/25 12:29 Pulse Oximetry 98 01/28/25 12:29 Temperature 97.6 F 01/28/25 12:29 Pulse Rate 55 L 01/28/25 14:56 Respiratory Rate 16 01/28/25 14:56 Blood Pressure 112/74 01/28/25 14:56 Pulse Oximetry 100 01/28/25 14:56 MDM - Dizziness MDM Narrative Medical decision making narrative: 40-year-old male presents to the emergency department for headache. Patient is hemodynamically stable. No focal neurological or cranial nerve deficits on exam. No meningeal signs. The headache was gradual in onset, it is not exertional and does not appear consistent with subarachnoid hemorrhage or intracranial bleeding. No trauma. Feels like ocular migraine he has had several times in the past. Patient is given headache cocktail including Reglan, Benadryl, Toradol. IV fluids, steroids, magnesium given to try to help break the migraine. On reevaluation, the patient feels significantly better with the headache resolved. No neurological deficits. Patient is comfortable going home for outpatient follow-up with primary care physician and/or neurology and provided with strict return precautions, especially for worsening headaches, neck pain/stiffness, fever or weakness, numbness/tingling or persistent vomiting. Lab Data 01/28/25 13:22 01/28/25 13:22 Labs: Lab Results 01/28/25 Range/Units 13:22 WBC 5.3 (4.5-10.0) K/mm3 RBC 4.67 (4.6-6.20) M/mm3 Hgb 14.4 (14.0-18.0) g/dL Hct 43.3 (42.0-52.0) % MCV 92.7 (80-100) fl MCH 30.8 (26-34) pg MCHC 33.3 (32-36) g/dl RDW 13.1 (11.5-14.5) % Plt Count 200 (150-375) k/mm3 MPV 10.4 (7.4-10.4) fl Immature Gran % (Auto) 0.4 (0-0.5) % Neut % (Auto) 54.8 (45.5-73.1) % Lymph % (Auto) 33.9 (18.3-44.2) % [place] % (Auto) 8.4 (2.6-8.5) % Eos % (Auto) 1.9 (0-4.4) % Baso % (Auto) 0.6 (0.2-1.2) % Lymph # (Auto) 1.78 (0.9-3.2) K/mm3 [place] # (Auto) 0.4 (0.1-0.6) K/mm3 Eos # (Auto) 0.1 (0-0.3) K/mm3 Baso # (Auto) 0.0 (0.0-0.1) K/mm3 Abs Immat Gran (auto) 0.02 (0.00-0.031) K/mm3 Absolute Neuts (auto) 2.9 (1.3-6.7) K/mm3 Absolute Nucleated RBC 0.000 (0.0-0.012) K/mm3 Nucleated RBC % 0.0 (0.0-0.2) % Sodium 139 (137-145) mmol/L Potassium 4.4 (3.4-5.0) mmol/L Chloride 105 (98-107) mmol/L Carbon Dioxide 27 (22-30) mmol/L Anion Gap 7 (4-12) mmol/L BUN 15 (9-20) mg/dL Creatinine 0.78 (0.7-1.3) mg/dL Estim Creat Clear Calc 105 ml/min Estimated GFR > 60 (59 - ) Glucose 105 (65-110) mg/dL Calcium 9.2 (8.4-10.2) mg/dL Total Bilirubin 0.5 (0.2-1.3) mg/dL AST 46 (17-59) U/L ALT 53 H (6-50) U/L Alkaline Phosphatase 68 (38-126) U/L Total Protein 7.8 (6.3-8.2) g/dL Albumin 4.6 (3.5-5.1) g/dL Discharge Plan Discharge Clinical Impression: Migraine Patient Disposition: Home Condition: Stable Instructions: Migraine Headache (ED), Ocular Migraine (ED) Additional Instructions: Please follow up with your doctor and with neurologist; you can always return for any further issues especially if your headache comes back, if you have any new changes to your vision or difficulty walking or speaking or anything else concerning. Patient Language: Liberian Prescriptions: No Action levofloxacin 500 mg tablet 500 mg PO DAILY Qty: 10 0RF Follow-up/Referrals: Hardy Hutton MD [Physician] - 2 Days Gavin Hill MD [Primary Care Provider] -
[2025-01-28 14:56] VITALS: BP 112/74; PULSE 55; RESP 16; O2SAT 100
[2025-01-28 15:43] VITALS: BP 123/73; PULSE 60; RESP 20; O2SAT 100
== END 2025-01-28 16:01 | disposition home or self-care (01) ==
PROVIDERS: Emergency Provider Emergency Medicine; PCP Family Medicine Adolescent Medicine
DX: G43.909 Migraine, unspecified, not intractable, without status migrainosus (principal)
CPT/HCPCS: 36415; 80053; 85025; 93005; 96365; 96366; 96375; 99284; J1100; J1200; J1885; J2765; J3475; J7120

== ENCOUNTER 2025-02-04 03:37 | Emergency (ER) | payer OTHER, SELFPAY ==
[2025-02-04] VITALS (7 sets, daily range): BP systolic 118–133; BP diastolic 77–78; PULSE 55–69; RESP 15–20; TEMP 36.6; O2SAT 99–100
--- OUTSIDE RECORDS SUMMARY | 2025-02-04 03:40 | XMS_ITS | Clinical Summary ---
Author Organization [facility] Address [address] [place] [id number] Care Team Providers Care Technical Illustrations Map Inker Name Role Phone Unavailable Primary Care Provider [...]
--- OUTSIDE RECORDS SUMMARY | 2025-02-04 03:40 | XMS_ITS | Data Portability ---
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 Plan of Treatment Reminders Order Date Submit Date Provider Last Modified By Organization Details Last Modified Time Details Appointments None recorded. Lab CBC w/ auto diff 2014 015 [facility], [address] [place] [address], [facility] [address], [place], [address], 5 06:23:55 BMP, serum or plasma 2014 015 [facility], [address] [place] [address], [address], [place], [address], 5 06:23:55 amylase + lipase, serum 2014 015 [email or web address] [facility], [address] [place] [address], [facility] [address], [place], [address], 5 10:35:20 H pylori iga Ab, serum 2014 015 [facility], [address] [place] [address], [address], [place], [address], 5 13:12:13 Referral gastroente rologist referral - 30 y/o with persistent epigastric abd pain despite treatment with PPI for over 2 months 2014 015 [facility] Not available 5 18:33:38 Procedures esophagoga stroduoden oscopy with biopsy (PROC) - LUQ pain/nause a 2014 016 [email or web address] [facility] ([facility]), [address] [place], [address], 6 14:29:49 Surgeries None recorded. Imaging upper GI - persistent epigastric abdominal pain for over 2 months despite treatment with PPI 2014 015 [facility], [address], [place], [address], 5 14:38:32 Medication Orders omeprazole 20 mg tablet,del ayed release 2014 015 [facility], [address] [place] [address], [id number], 5 16:38:38 thiamine HCl (vitamin B1) 100 mg tablet 2014 015 [facility], [address] [place] [address], [id number], 5 14:58:46 omeprazole 20 mg tablet,del ayed release 2014 015 [facility], [address] [place] [address], [id number], 5 14:58:46 omeprazole 20 mg tablet,del ayed release 2014 015 [facility], [address] [place] [address], [id number], 5 14:58:46 omeprazole 20 mg tablet,del ayed release 2014 015 [facility], [address] [place] [address], [id number], 5 17:33:14 omeprazole 20 mg tablet,del ayed release 2014 015 [facility], [address] [place], [place], [id number], 5 15:01:05 Zofran 8 mg tablet 2014 015 [facility], [address] [place], [place], [id number], 5 15:01:05 Patient TargetsNo targets recorded. Patient Instructions Encounter Date Encounter Id Patient Instructions Last Modified By Organization Details Last Modified Time 10/31/2014 [id number] gastritis: instrucciones de cuidado - [gastritis: care [...] 11.0 POSIT NICHOLE >11.0 Not Available [facility] ([facility]) [address] [facility], [place], [address], 11/16/2014 13:12:13 11/14/19 15 11/15/2014 amyla se, serum or plasm a amylase, serum 44 U/L 31-124 Not Available [facility] ([facility]) [address] [facility], [place], [address], 11/16/2014 13:12:14 11/14/19 15 11/15/2014 lipas e, serum or plasm a lipase, serum 37 U/L 0-59 Not Available [facility] ([facility]) [address] [place], [address], 11/16/2014 13:12:14 01/04/20 15 01/04/2015 CBC w/ auto diff WBC 5.9 x10e3 /uL 3.4-10 .8 Not Available [facility] ([facility]) [address] [place], [address], 01/04/2015 06:23:54 01/04/20 15 01/04/2015 CBC w/ auto diff RBC 4.88 x10e6 /uL 4.14-5 .80 Not Available [facility] ([facility]) [address] [place], [address], 01/04/2015 06:23:54 01/04/20 15 01/04/2015 CBC w/ auto diff hemoglobin 14.4 g/dL 12.6-1 7.7 Not Available [facility] ([facility]) [address] [place], [address], 01/04/2015 06:23:54 01/04/20 15 01/04/2015 CBC w/ auto diff hematocrit 44.0 % 37.5-5 1.0 Not Available [facility] ([facility]) [address] [place], [address], 01/04/2015 06:23:54 01/04/20 15 01/04/2015 CBC w/ auto diff MCV 90 fL 79-97 Not Available [facility] ([facility]) [address] [place], [address], 01/04/2015 06:23:54 01/04/20 15 01/04/2015 CBC w/ auto diff MCH 29.5 pg 26.6-3 3.0 Not Available [facility] ([facility]) [address] [place], [address], 01/04/2015 06:23:54 01/04/20 15 01/04/2015 CBC w/ auto diff MCHC 32.7 g/dL 31.5-3 5.7 Not Available [facility] ([facility]) [address] [facility], [place], [address], 01/04/2015 06:23:54 01/04/20 15 01/04/2015 CBC w/ auto diff RDW 13.5 % 12.3-1 5.4 Not Available [facility] ([facility]) [address] [facility], [place], [address], 01/04/2015 06:23:54 01/04/20 15 01/04/2015 CBC w/ auto diff platelets 244 x10e3 /uL 150-37 9 Not Available [facility] ([facility]) [address] [facility], [place], [address], 01/04/2015 06:23:54 01/04/20 15 01/04/2015 CBC w/ auto diff neutrophils 57 % Not Available [facility]) [address] [facility], [place], [address], 01/04/2015 06:23:54 01/04/20 15 01/04/2015 CBC w/ auto diff lymphs 29 % Not Available [facility] ([facility]) [address] [facility], [place], [address], 01/04/2015 06:23:54 01/04/20 15 01/04/2015 CBC w/ auto diff monocytes 9 % Not Available [facility] ([facility]) [address] [place], [address], 01/04/2015 06:23:54 01/04/20 15 01/04/2015 CBC w/ auto diff eos 4 % Not Available [facility] ([facility]) [address] [place], [address], 01/04/2015 06:23:54 01/04/20 15 01/04/2015 CBC w/ auto diff basos 1 % Not Available [facility] ([facility]) [address] [place], [address], 01/04/2015 06:23:54 01/04/20 15 01/04/2015 CBC w/ auto diff immature cells DISABILITY ADVOCATE Not Available [facility] ([facility]) [address] [place], [address], 01/04/2015 06:23:54 01/04/20 15 01/04/2015 CBC w/ auto diff neutrophils (absolute) 3.4 x10e3 /uL 1.4-7. 0 Not Available [facility] ([facility]) [address] [place], [address], 01/04/2015 06:23:54 01/04/20 15 01/04/2015 CBC w/ auto diff lymphs (absolute) 1.7 x10e3 /uL 0.7-3. 1 Not Available [facility] ([facility]) [address] [place], [address], 01/04/2015 06:23:54 01/04/20 15 01/04/2015 CBC w/ auto diff monocytes(ab solute) 0.5 x10e3 /uL 0.1-0. 9 Not Available [facility] ([facility]) [address] [place], [address], 01/04/2015 06:23:54 01/04/20 15 01/04/2015 CBC w/ auto diff eos (absolute) 0.2 x10e3 /uL 0.0-0. 4 Not Available [facility] ([facility]) [address] [place], [address], 01/04/2015 06:23:54 01/04/20 15 01/04/2015 CBC w/ auto diff baso (absolute) 0.0 x10e3 /uL 0.0-0. 2 Not Available [facility] ([facility]) [address] [place], [address], 01/04/2015 06:23:54 01/04/20 15 01/04/2015 CBC w/ auto diff immature granulocytes 0 % Not Available [facility]) [address] [place], [address], 01/04/2015 06:23:54 01/04/20 15 01/04/2015 CBC w/ auto diff immature grans (abs) 0.0 x10e3 /uL 0.0-0. 1 Not Available [facility] ([facility]) [address] [place], [address], 01/04/2015 06:23:54 01/04/20 15 01/04/2015 CBC w/ auto diff NRBC DISABILITY ADVOCATE Not Available [facility] ([facility]) [address] [place], [address], 01/04/2015 06:23:54 01/04/20 15 01/04/2015 CBC w/ auto diff hematology comments: DISABILITY ADVOCATE Not Available [facility] ([facility]) [address] [place], [address], 01/04/2015 06:23:54 01/04/20 15 01/04/2015 BMP, serum or plasm a glucose, serum 104 mg/dL 65-99 high Not Available [facility] ([facility]) [address] [place], [address], 01/04/2015 06:23:55 01/04/20 15 01/04/2015 BMP, serum or plasm a BUN 12 mg/dL 6-20 Not Available [facility] ([facility]) [address] [place], [address], 01/04/2015 06:23:55 01/04/20 15 01/04/2015 BMP, serum or plasm a creatinine, serum 0.74 mg/dL 0.76-1 .27 low Not Available [facility] ([facility]) [address] [facility], [place], [address], 01/04/2015 06:23:55 01/04/20 15 01/04/2015 BMP, serum or plasm a eGFR if nonafricn AM 123 mL/mi n/1.7 3 >59 Not Available [facility] ([facility]) [address] [facility] [place], [address], 01/04/2015 06:23:55 01/04/20 15 01/04/2015 BMP, serum or plasm a eGFR if africn AM 142 mL/mi n/1.7 3 >59 Not Available [facility] ([facility]) [address] [facility] [place], [address], 01/04/2015 06:23:55 01/04/20 15 01/04/2015 BMP, serum or plasm a BUN/creatini ne ratio 16 8-19 Not Available [facility] ([facility]) [address] [facility] [place], [address], 01/04/2015 06:23:55 01/04/20 15 01/04/2015 BMP, serum or plasm a sodium, serum 140 mmol/ L 134-14 4 Not Available [facility] ([facility]) [address] [facility] [place], [address], 01/04/2015 06:23:55 01/04/20 15 01/04/2015 BMP, serum or plasm a potassium, serum 4.2 mmol/ L 3.5-5. 2 Not Available [facility] ([facility]) [address] [facility] [place], [address], 01/04/2015 06:23:55 01/04/20 15 01/04/2015 BMP, serum or plasm a chloride, serum 102 mmol/ L 97-108 Not Available [facility] ([facility]) [address] [facility] [place], [address], 01/04/2015 06:23:55 01/04/20 15 01/04/2015 BMP, serum or plasm a carbon dioxide, total 23 mmol/ L 18-29 Not Available [facility] ([facility]) [address] [facility], [place], [address], 01/04/2015 06:23:55 01/04/20 15 01/04/2015 BMP, serum or plasm a calcium, serum 9.5 mg/dL 8.7-10 .2 Not Available [facility] ([facility]) [address] [facility], [place], [address], 01/04/2015 06:23:55 01/16/20 15 01/15/2015 upper GI No observ ation record ed. [email or web address] [facility] [address] [facility], [place], [address], 01/22/2015 17:14:38 Result Notes None recorded. Problems Name Problem SNOMED Code Status Onset Date Resolution Date Notes Provider Name and Address Organization Details Recorded Time Epigastric pain 43315781 Active Jarrett Velasco [facility] Attn: Accountin g,[address] [facility] [facility], [place], [address], [facility] 5 14:58:46 Acute gastritis 31942094 Active Jarrett Velasco [facility] Attn: Accountin g,[address] [facility], [place], [address], [facility] 5 14:58:46 Abdominal pain 79433584 Active Rizwana Salomon MD [address] [place], [address], [facility] 5 16:37:57 Nausea 450576756 Active Rizwana Salomon MD [address] [place], [address], [facility] 5 16:37:57 Problem Notes None recorded. Medical [...] Address Organization Details Last Updated DateTime 10/31/2014 24873.79 8275 g 23.4 kg/m2 174.625 cm 98.2 [degF] 124/82 mm[Hg] Jacquie Jerry [facility] 5 14:27:35 Date Recorded Body weight Body mass index (BMI) Body height Body temperature Systolic And Diastolic Provider Name and Address Organization Details Last Updated DateTime 11/13/2014 08891.60 3997 g 23.3 kg/m2 174.625 cm 98.7 [degF] 104/70 mm[Hg] Jacquie Jerry [facility] 5 16:38:28 Date Recorded Body weight Body temperature Body mass index (BMI) Body height Systolic And Diastolic Provider Name and Address Organization Details Last Updated DateTime 2015 17750.65 1685 g 97.8 [degF] 22.4 kg/m2 174.625 cm 116/72 mm[Hg] NATHANIEL Momin [facility] 5 13:02:08 Date Recorded Body height Body mass index (BMI) Body weight Heart rate Systolic And Diastolic Provider Name and Address Organization Details Last Updated DateTime 04/18/2015 172.72 cm 24.2 kg/m2 61139.82 7593 g 54 /min 116/73 mm[Hg] Aleena Beyer [facility] 04/18/2015 15:39:56 Social History Question Answer Notes LastModified by Organizat ion Details LastModified Time Tobacco Smoking Status Never Smoker Jacquie kumar [facility] 10/31/2014 14:27:35 What Is Your Level Of Caffeine Consumption? None Information not available 2015 How Much Tobacco Do You Chew? None Information not available 2015 What Type Of Diet Are You Following? REGULAR Information not available 2015 Education Less Than 8th Grade [email or web address] Information not available 2015 Are There Any Guns Present In Your Home? No Information not available 2015 Hard Of Hearing Or Deaf In One Or Both Ears? No [email or web address] Information not available 2015 Legally Blind In One Or Both Eyes? No [email or web address] Information not available 2015 Marital Status [email or web address] Informatio n not available 2015 Seat Belts Used Routinely Yes Information not available 2015 Smoke Alarm In Home Yes [email or web address] Information not available 2015 How Much Tobacco Do You Smoke? No [email or web address] Information not available 2015 General Stress Level Medium [email or web address] Information not available 2015 Sex: Unknown Functional Status Question Answer Note LastModified by Organizat ion Details LastModified Time What is your level of alcohol consumption? 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 Occasional Information not available 2015 Mental Status None recorded. Family History Relationship Description Onset Age of this Age Resolved Age Notes LastModified by Organization Details LastModified Time Mother Fit and well Not availa ble 04/18/2015 15:40:43 Father Fit and well Not availa ble 04/18/2015 15:40:43 Medical History Condition Response Diabetes N Seizures/Epilepsy N Hyperlipidemia N Heart Disease N Hypertension N Past Encounters Encounter ID Performer Location Encounter Start Date Encounter Closed Date Diagnosis/Indication Diagnosis SNOMED-CT Code Diagnosis ICD10 Code Diagnosis Note [id number] Jason Page MD [facility] [address] [address] 10/31/2014 14:17:27 11/05/2014 17:16:33 Epigastric pain 04625820 Acute gastritis [id number] Jason Page MD [facility] [address] [place] [address] 11/13/2014 16:04:26 11/14/2014 17:47:03 Epigastric pain 05691139 take Omeprazole 20mg twice daily 1/2 hour before meals do not go to bed soon after eating avoid spicey foods, or any aggravatin g foods Acute gastritis 33351525 [id number] Jason Page MD [facility] [address] [place] [address] 2015 12:46:35 01/04/2015 14:38:31 Acute gastritis 01134612 Epigastric pain 58537614 take Omeprazole 20mg twice daily 1/2 hour before meals do not go to bed soon after eating avoid spicey foods, or any aggravatin g foods History of alcohol abuse 942505206 [id number] Rizwana Salomon MD [facility] [address] [place] [address] 04/18/2015 15:03:50 04/22/2015 12:30:58 Abdominal pain 79570960 R10.12 Nausea 064585288 R11.0 Health Concerns Section Related Observation LastModified [...] per os. LOAN Padilla Attn: [address]ing[address] [place], [address], [facility] 10/31/2014 15:01:15 11/13/2014 text/html epigastric pain, gastritis f/u; a little better but still has symptoms especially early am. However, he has only been taking the capsule once daily . Has a lot of heartburn. ELA Padilla Attn: Accounting[address] [facility], [place], [address], [facility] 11/14/2014 13:44:15 2015 text/html [...] ago. ELA Padilla Attn: Accounting[address] [facility], [place], [address], [facility] 2015 14:59:48 04/18/2015 text/html Symptoms better when alcohol use is reduced. UGI revealed GERD and H/H. Better on PPI but sx persist. Rizwana Salomon MD [address] [place], [address], [facility] 04/18/2015 16:38:33
--- OUTSIDE RECORDS SUMMARY | 2025-02-04 03:40 | XMS_ITS | Data Portability ---
Author Organization [place] - [facility], Main Office Address [address] [place] [id number] Assessment No assessment recorded. Plan of Treatment Reminders Order Date Submit Date Provider Last Modified By Organization Details Last Modified Time Details Appointments None recorded. Lab CMP, serum or plasma 2024 025 [facility] [address] [place] [address], [address], 12:20:41 CBC w/ auto diff 2024 025 [facility] ([place]), [address] [place] [address], [address], 12:20:41 TSH, ultra-sensi tive, serum 2024 025 [facility] [place], [address], 12:20:44 HbA1c (hemoglobin A1c), blood 2024 025 [facility] [address] [place] [address], [address], 5 12:20:43 lipid panel, serum 2024 025 [facility] [address] [place] [address], [address], 5 12:20:42 urinalysis, dipstick 2024 025 [facility] [address], [address], [place], [address], 15:00:22 lipase, serum or plasma 2024 025 [facility]VA [facility] ([place]), [address], [place], [address], 12:20:44 Referral None recorded. Procedures None recorded. Surgeries None recorded. Imaging None recorded. Medication Orders omeprazole 20 mg capsule,del ayed release 2024 025 [facility] [address], [address], [place], [place], [id number], 14:36:34 Patient TargetsNo targets recorded. Patient Instructions Encounter Date Encounter Id Patient Instructions Last Modified By Organization Details Last Modified Time 01/22/2025 [id number] headache: care instructions [email or web address] Not available 01/22/2025 14:35:34 high blood pressure: care instructions [id number] Not available 01/22/2025 14:36:10 Reason for Referral None Reported. Results Created Date Observation Date Name Description Value Unit Range Abnormal Flag Note LastModifiedBy Organization Detail LastModifiedTime 01/23/2001/23/2025 CBC WITH DIFFE RENTI AL/PL ATELE T WBC 5.7 x10e3 /uL 3.4-10 .8 normal Not Available [facility] ([facility]) [address] [facility], [place], [address], 01/23/2025 12:20:41 01/23/20 25 01/23/2025 CBC WITH DIFFE RENTI AL/PL ATELE T RBC 5.24 x10e6 /uL 4.14-5 .80 normal Not Available [facility] ([facility]) [address] [facility], [place], [address], 01/23/2025 12:20:41 01/23/20 25 01/23/2025 CBC WITH DIFFE RENTI AL/PL ATELE T hemoglobin 16.1 g/dL 13.0-1 7.7 normal Not Available [facility] ([facility]) [address] [place], [address], 01/23/2025 12:20:41 01/23/20 25 01/23/2025 CBC WITH DIFFE RENTI AL/PL ATELE T hematocrit 50.0 % 37.5-5 1.0 normal Not Available [facility] ([facility]) [address] [place], [address], 01/23/2025 12:20:41 01/23/20 25 01/23/2025 CBC WITH DIFFE RENTI AL/PL ATELE T MCV 95 fL 79-97 normal Not Available [facility] ([facility]) [address] [facility], [place], [address], 01/23/2025 12:20:41 01/23/20 25 01/23/2025 CBC WITH DIFFE RENTI AL/PL ATELE T MCH 30.7 pg 26.6-3 3.0 normal Not Available [facility] ([facility]) [address] [place], [address], 01/23/2025 12:20:41 01/23/20 25 01/23/2025 CBC WITH DIFFE RENTI AL/PL ATELE T MCHC 32.2 g/dL 31.5-3 5.7 normal Not Available [facility] ([facility]) [address] [place], [address], 01/23/2025 12:20:41 01/23/20 25 01/23/2025 CBC WITH DIFFE RENTI AL/PL ATELE T RDW 13.2 % 11.6-1 5.4 Not Available [facility] ([facility]) [address] [place], [address], 01/23/2025 12:20:41 01/23/20 25 01/23/2025 CBC WITH DIFFE RENTI AL/PL ATELE T platelets 246 x10e3 /uL 150-45 0 normal Not Available [facility] ([facility]) [address] [facility], [place], [address], 01/23/2025 12:20:41 01/23/20 25 01/23/2025 CBC WITH DIFFE RENTI AL/PL ATELE T neutrophils 56 % not estab. normal Not Available [facility] ([facility]) [address] [facility], [place], [address], 01/23/2025 12:20:41 01/23/20 25 01/23/2025 CBC WITH DIFFE RENTI AL/PL ATELE T lymphs 30 % not estab. normal Not Available [facility] ([facility]) [address] [facility], [place], [address], 01/23/2025 12:20:41 01/23/20 25 01/23/2025 CBC WITH DIFFE RENTI AL/PL ATELE T monocytes 10 % not estab. normal Not Available [facility] ([facility]) [address] [facility], [place], [address], 01/23/2025 12:20:41 01/23/20 25 01/23/2025 CBC WITH DIFFE RENTI AL/PL ATELE T eos 2 % not estab. normal Not Available [facility] ([facility]) [address] [facility], [place], [address], 01/23/2025 12:20:41 01/23/20 25 01/23/2025 CBC WITH DIFFE RENTI AL/PL ATELE T basos 1 % not estab. 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 0 normal Not Available [facility] ([facility]) [address] [place], [address], 01/23/2025 12:20:41 01/23/20 25 01/23/2025 CBC WITH DIFFE RENTI AL/PL ATELE T lymphs (absolute) 1.7 x10e3 /uL 0.7-3. 1 normal Not Available [facility] ([facility]) [address] [place], [address], 01/23/2025 12:20:41 01/23/20 25 01/23/2025 CBC WITH DIFFE RENTI AL/PL ATELE T monocytes(ab solute) 0.6 x10e3 /uL 0.1-0. 9 normal Not Available [facility] ([facility]) [address] [place], [address], 01/23/2025 12:20:41 01/23/20 25 01/23/2025 CBC WITH DIFFE RENTI AL/PL ATELE T eos (absolute) 0.1 x10e3 /uL 0.0-0. 4 normal Not Available [facility] ([facility]) [address] [place], [address], 01/23/2025 12:20:41 01/23/20 25 01/23/2025 CBC WITH DIFFE RENTI AL/PL ATELE T baso (absolute) 0.0 x10e3 /uL 0.0-0. 2 normal Not Available [facility] ([facility]) [address] [place], [address], 01/23/2025 12:20:41 01/23/20 25 01/23/2025 CBC WITH DIFFE RENTI AL/PL ATELE T immature granulocytes 1 % not estab. Not Available [facility] ([facility]) [address] [facility], [place], [address], 01/23/2025 12:20:41 01/23/20 25 01/23/2025 CBC WITH DIFFE RENTI AL/PL ATELE T immature grans (abs) 0.1 x10e3 /uL 0.0-0. 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 METAB OLIC PANEL (14) glucose 84 mg/dL 70-99 normal Not Available [facility] ([facility]) [address] [facility], [place], [address], 01/23/2025 12:20:41 01/23/20 25 01/23/2025 COMP. METAB OLIC PANEL (14) BUN 23 mg/dL 6-24 normal Not Available [facility] ([facility]) [address] [facility], [place], [address], 01/23/2025 12:20:41 01/23/20 25 01/23/2025 COMP. METAB OLIC PANEL (14) creatinine 1.00 mg/dL 0.76-1 .27 normal Not Available [facility] ([facility]) [address] [place], [address], 01/23/2025 12:20:41 01/23/20 25 01/23/2025 COMP. METAB OLIC PANEL (14) eGFR 97 mL/mi n/1.7 3 >59 normal Not Available [facility] ([facility]) [address] [facility], [place], [address], 01/23/2025 12:20:41 01/23/20 25 01/23/2025 COMP. METAB OLIC PANEL (14) BUN/creatini ne ratio 23 9-20 above high normal Not Available [facility] ([facility]) [address] [facility], [place], [address], 01/23/2025 12:20:41 01/23/20 25 01/23/2025 COMP. METAB OLIC PANEL (14) sodium 142 mmol/ L 134-14 4 normal Not Available [facility] ([facility]) [address] [facility], [place], [address], 01/23/2025 12:20:41 01/23/20 25 01/23/2025 COMP. METAB OLIC PANEL (14) potassium 4.7 mmol/ L 3.5-5. 2 normal Not Available [facility] ([facility]) [address] [facility], [place], [address], 01/23/2025 12:20:41 01/23/20 25 01/23/2025 COMP. METAB OLIC PANEL (14) chloride 104 mmol/ L 96-106 normal Not Available [facility] ([facility]) [address] [facility], [place], [address], 01/23/2025 12:20:41 01/23/20 25 01/23/2025 COMP. METAB OLIC PANEL (14) carbon dioxide, total 21 mmol/ L 20-29 normal Not Available [facility] ([facility]) [address] [facility], [place], [address], 01/23/2025 12:20:41 01/23/20 25 01/23/2025 COMP. METAB OLIC PANEL (14) calcium 9.9 mg/dL 8.7-10 .2 normal Not Available [facility] ([facility]) [address] [place], [address], 01/23/2025 12:20:41 01/23/20 25 01/23/2025 COMP. METAB OLIC PANEL (14) protein, total 7.7 g/dL 6.0-8. 5 normal Not Available [facility] ([facility]) [address], [place], [address], 01/23/2025 12:20:41 01/23/20 25 01/23/2025 COMP. METAB OLIC PANEL (14) albumin 4.9 g/dL 4.1-5. 1 normal Not Available [facility] ([facility]) [address] [place], [address], 01/23/2025 12:20:41 01/23/20 25 01/23/2025 COMP. METAB OLIC PANEL (14) globulin, total 2.8 g/dL 1.5-4. 5 Not Available [facility] ([facility]) [address] [facility] [place], [address], 01/23/2025 12:20:41 01/23/20 25 01/23/2025 COMP. METAB OLIC PANEL (14) bilirubin, total 0.5 mg/dL 0.0-1. 2 normal Not Available [facility] ([facility]) [address] [facility] [place], [address], 01/23/2025 12:20:41 01/23/20 25 01/23/2025 COMP. METAB OLIC PANEL (14) alkaline phosphatase 95 IU/L 44-121 normal Not Available [facility] ([facility]) [address] [facility] [place], [address], 01/23/2025 12:20:41 01/23/20 25 01/23/2025 COMP. METAB OLIC PANEL (14) AST (SGOT) 36 IU/L 0-40 normal Not Available [facility] ([facility]) [address] [place], [address], 01/23/2025 12:20:41 01/23/20 25 01/23/2025 COMP. METAB OLIC PANEL (14) ALT (SGPT) 40 IU/L 0-44 normal Not Available [facility] ([facility]) [address] [place], [address], 01/23/2025 12:20:41 01/23/20 25 01/23/2025 LIPID PANEL W/ CHOL/ HDL RATIO cholesterol, total 224 mg/dL 100-19 9 above high normal Not Available [facility] ([facility]) [address] [place], [address], 01/23/2025 12:20:42 01/23/20 25 01/23/2025 LIPID PANEL W/ CHOL/ HDL RATIO triglyceride s 109 mg/dL 0-149 normal Not Available [facility] ([facility]) [address] [place], [address], 01/23/2025 12:20:42 01/23/20 25 01/23/2025 LIPID PANEL W/ CHOL/ HDL RATIO HDL cholesterol 61 mg/dL >39 normal Not Available [facility] ([facility]) [address] [place], [address], 01/23/2025 12:20:42 01/23/20 25 01/23/2025 LIPID PANEL W/ CHOL/ HDL RATIO VLDL cholesterol juaquin 19 mg/dL 5-40 Not Available [facility] ([facility]) [address] [place], [address], 01/23/2025 12:20:42 01/23/20 25 01/23/2025 LIPID PANEL W/ CHOL/ HDL RATIO LDL chol calc ([facility]) 144 mg/dL 0-99 above high normal Not Available [facility] ([facility]) [address] [place], [address], 01/23/2025 12:20:42 01/23/20 25 01/23/2025 LIPID PANEL W/ CHOL/ HDL RATIO LDL calc 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 chol/HDL ratio 3.7 ratio 0.0-5. 0 T. Chol/ HDL Ratio Men Women 1/2 Avg.R isk 3.4 3.3 Avg.R isk 5.0 4.4 2X Avg.R isk 9.6 7.1 3X Avg.R isk 23.4 11.0 Not Available [facility] ([facility]) [address] [place], [address], 01/23/2025 12:20:42 01/23/20 25 01/23/2025 HEMOG LOBIN A1C hemoglobin A1C 5.8 % 4.8-5. 6 above high normal Predi abete s: 5.7 - 6.4 Diabe feroz: >6.4 Glyce gino contr ol for adult s with diabe feroz: <7.0 Not Available [facility] ([facility]) [address] [place], [address], 01/23/2025 12:20:43 01/23/20 25 01/23/2025 TSH TSH 2.080 uIU/m L 0.450- 4.500 normal Not Available [facility] ([facility]) [address] [place], [address], 01/23/2025 12:20:43 01/23/20 25 01/23/2025 LIPAS E lipase 28 U/L 13-78 normal Not Available [facility] ([facility]) [address] [place], [address], 01/23/2025 12:20:44 01/23/20 25 01/22/2025 urina lysis , dipst ick Color Yellow Not Available [facility] [address], [place], [address], 01/22/2025 14:18:59 01/23/20 25 01/22/2025 urina lysis , dipst ick Appearance Clear Not Available [facility] [address], [place], [address], 01/22/2025 14:18:59 01/23/20 25 01/22/2025 urina lysis , dipst ick Leukocytes negati ve Not Available [facility] [address], [place], [address], 01/22/2025 14:18:59 01/23/20 25 01/22/2025 urina lysis , dipst ick Nitrites negati ve Not Available [facility] [address], [place], [address], 01/22/2025 14:18:59 01/23/20 25 01/22/2025 urina lysis , dipst ick Urobilinogen Normal (0.2) Not Available [facility] [address], [place], [address], 01/22/2025 14:18:59 01/23/20 25 01/22/2025 urina lysis , dipst ick Protein negati ve Not Available [facility] [address] [facility], [place], [address], 01/22/2025 14:18:59 01/23/20 25 01/22/2025 urina lysis , dipst ick pH 6.[address] [facility] [address] [facility], [place], [address], 01/22/2025 14:18:59 01/23/20 25 01/22/2025 urina lysis , dipst ick Blood negati ve Not Available [facility] [address] [facility], [place], [address], 01/22/2025 14:18:59 01/23/2001/22/2025 urina lysis , dipst ick Specific Sarver 1.015 Not Available [facility] [address] [facility], [place], [address], 01/22/2025 14:18:59 01/23/20 25 01/22/2025 urina lysis , dipst ick Ketone negati ve Not Available [facility] [address] [facility], [place], [address], 01/22/2025 14:18:59 01/23/20 25 01/22/2025 urina lysis , dipst ick Bilirubin negati ve Not Available [facility] [address] [facility], [place], [address], 01/22/2025 14:18:59 01/23/2001/22/2025 urina lysis , dipst ick Glucose negati ve Not Available [facility] [address] [facility], [place], [address], 01/22/2025 14:18:59 Result Notes None recorded. 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 Procedures Surgical History Date Name Laterality Status Provider Name and Address Organization Details Recorded Time no surgical history completed Marnie Willson MD [address], [place], [address], [facility] 01/22/2025 14:16:25 Imaging Results None recorded. Procedure [...] Address Organization Details Last Updated DateTime 5 [address]249.9 6 g 25.6 kg/m2 172.72 cm 20 /min 97.8 [degF] 98 % 98 % 80 /min 142/84 mm[Hg] Shanell Farmer er [facility] 14:05:22 Social History Question Answer Notes LastModified by Organizat ion Details LastModified Time Tobacco Smoking Status Former Smoker SocialHist oryQuestio n: 'Tobacco Use/Smokin g'; SocialHist oryRespons e: 'Are you a: light tobacco smoker'; Shanell Garcia null, [place] - [facility] 01/22/2025 14:03:41 What Is Your Level Of Caffeine Consumption? Occasional [email or web address] Information not available 01/22/2025 What Type Of Diet Are You Following? REGULAR [email or web address] Information not available 01/22/2025 When Did You Quit Smoking? 1-5yearssincel louise Quit 2022 [email or web address] Information not available 01/22/2025 Cigar Smoking No Informat ion not available 01/22/2025 What Was The Date Of Your Most Recent Tobacco Screening? 01/22/2025 Information not available 01/22/2025 What Is Your Current Pack Years? 10-19packyears [email or web address] Information not available 01/22/2025 What Is Your Relationship Status? [email or web address] Information not available 01/22/2025 How Much Tobacco [...] a heavier drinker, but cut back 06/2024 [email or web address] Information not available 01/22/2025 Do you use any illicit or recreational drugs? No [email or web address] Information not available 01/22/2025 Do you or have you ever used any other forms of tobacco or nicotine? No SocialHist oryQuestio n: 'Tobacco use other than smoking'; SocialHist oryRespons e: 'Are you an other tobacco user? No'; [email or web address] Information not available 07/12/2024 What is your level of alcohol consumption? Occasional [email or web address] Information not available 01/22/2025 Mental Status None [...] SNOMED-CT Code Diagnosis ICD10 Code Diagnosis Note [id number] Marnie Willson MD [facility] [address] [place] [address] 01/22/2025 14:00:06 01/22/2025 14:45:38 Physical examination 4815199 Z00.00 Routine age-approp riate anticipato ry guidance [...] were answered to his satisfacti on. Heartburn 01955070 R12 Acute headache 901731839 R51.9 Health Concerns Section Related Observation LastModified by Organization Detai ls LastModified Time None Recorded Concern Status LastModified by Organization Details LastModified Time None Recorded Advance Directives Directive None Recorded Payers Insurance Date Sequence Insurance Name Policy Number Policy Lau Covered Member ID Lau Member ID Guarantor Name 01/22/[address] [facility] [employer] - [employer] LOC[employer] 42 AND 110 - ALL - PLAN PARTICIPANT - (MOVED-BILLED) UNKNOWN Héctor Ochoa NO_INS_NU ELYSEER_DAVID Weaver 01/22/2025 [place] [id number] AND 110 - ALL - PLAN PARTICIPANT - (MOVED-BILLED) UNKNOWN Héctor Ochoa NO_INS_NU MBER_AVAI LABLE [place] Weaver 01/22/2025 [facility] 42 AND 110 - ALL - PLAN PARTICIPANT - (MOVED-BILLED) UNKNOWN Héctor Ochoa Weaver UNKNOWN [facility] [place] Weaver 01/22/2025 [facility] 42 AND 110 - ALL - PLAN PARTICIPANT - (MOVED-BILLED) UNKNOWN Héctor Ochoa Weaver UNKNOWN [facility] [place] Weaver 01/22/2025 [facility] 42 AND 110 - ALL - PLAN PARTICIPANT - (MOVED-BILLED) UNKNOWN Héctor Ochoa Weaver UNKNOWN [facility] Weaver 01/22/2025 [facility] 42 AND 110 - ALL - PLAN PARTICIPANT - (MOVED-BILLED) UNKNOWN Héctor Ochoa Weaver UNKNOWN [facility] Weaver 01/22/2025 1 *SELF PAY* UNKNOWN [facility] Weaver UNKNOWN [facility] 01/22/2025 1 *SELF PAY* UNKNOWN [facility] Weaver UNKNOWN [facility] Weaver 01/22/2025 [facility] 42 AND 110 - ALL - PLAN PARTICIPANT - (MOVED-BILLED) UNKNOWN Héctor Ochoa Weaver UNKNOWN [facility] Weaver 01/22/2025 [place] [id number] AND 110 - ALL - PLAN PARTICIPANT - (MOVED-BILLED) UNKNOWN [facility] Weaver UNKNOWN [facility] Weaver 01/22/2025 [place] [address] AND 110 - ALL - PLAN PARTICIPANT - (MOVED-BILLED) UNKNOWN Héctor Ochoa Weaver NO_INS_NU MBER_AVAI LABANA LILIA [facility] Weaver 01/22/2025 [facility] 42 AND 110 - ALL - [...] weakness with these headaches. He has tried [id number] Tylenol with partial relief. He denies history [...] frequent breakthrough heartburn. He has been trying [id number] Tums with only partial relief. He had some sort of imaging test several years ago and was told he had some kind of hernia. Marnie Willson MD [address], [place], [address], [place] - [facility] 01/28/2025 10:01:15
--- OUTSIDE RECORDS SUMMARY | 2025-02-04 03:40 | XMS_ITS | Clinical Summary ---
Author Organization [facility] Address [address] [place] [id number] Care Team Providers Care Cytology Teacher Name Role Phone Unavailable Primary Care Provider Unavailabl e Social History Tobacco Use Types Packs/Day Years Used Date Smoking Tobacco: Never Assessed Sex and Gender Information Value Date Recorded Sex Assigned at Not on file Legal Sex Male 6:14 AM CDT Gender Identity Not on file Sexual Orientation Not on file Plan of Treatment Health Maintenance Due Date Last Done Comments Annual Physical 01/02/1987 Hepatitis C 01/02/2002 DTaP, Tdap and Td Vaccines ( 1 - Tdap) 01/02/2003 Hepatitis B Vaccines (1 of 3 - 19+ 3-dose series) 01/02/2003 HPV Vaccines (1 - 3-dose SCD M series) 01/02/2011 COVID-19 Vaccine (2023-2 5 season) 2024 Meningococcal B Vaccine Aged Out No l onger eligible based on patient's age to complete this topic Meningococcal Vaccine Aged Out No arlet waylon eligible based on patient's age to complete this topic Pneumococcal Vaccine: Pediat rics (0 to 5 Years) and At-Risk Patients (6 to 49 Years) Aged Out No longer eligible b ased on patient's age to complete this topic RSV Immunizations Under 20 Months Aged Out No longer eligible based on patient's age to complete this topic
--- NOTE | 2025-02-04 04:21 | ECG_ITS ---
Test Date: 2025-02-04 04:31:08 Measurements Intervals [place] Rate: 58 P: 66 MI: 196 QRS: 45 QRSD: 106 T: 38 QT: 410 QTc: 403 Interpretive Statements SINUS BRADYCARDIA Compared to ECG 01/28/2025 13:03:57 No significant changes Electronically Signed On 02-04-2025 11:24:48 CDT by Romero Bullock M.D.
[2025-02-04 04:38] LABS: Hematocrit 44.4 % (42.0-52.0); Hemoglobin 14.8 g/dL (14.0-18.0); Immature Granulocyte Percent A 1.2 % (0-0.5); Lymphocytes Absolute Auto 1.84 K/mm3 (0.9-3.2); Mean Corpuscular HGB Conc 33.3 g/dl (32-36); Mean Corpuscular Hemoglobin 30.6 pg (26-34); Mean Corpuscular Volume 91.9 fl (80-100); Nucleated Red Blood Cells Absolute Auto 0.000 K/mm3 (0.0-0.012); Nucleated Red Blood Cells Perc 0.0 % (0.0-0.2); Platelet Count Result 212 k/mm3 (150-375); Red Blood Count 4.83 M/mm3 (4.6-6.20); White Blood Count 5.7 K/mm3 (4.5-10.0)
[2025-02-04 04:57] LABS: Alanine Aminotransferase 73 U/L (6-50); Albumin Level 4.4 g/dL (3.5-5.1); Alkaline Phosphatase 73 U/L (38-126); Anion Gap 9 mmol/L (4-12); Aspartate Amino Transferase 39 U/L (17-59); Bilirubin,Total 0.8 mg/dL (0.2-1.3); Blood Urea Nitrogen 13 mg/dL (9-20); Calcium 9.3 mg/dL (8.4-10.2); Carbon Dioxide 24 mmol/L (22-30); Chloride 106 mmol/L (98-107); Estimated CRCL calculation 110 ml/min; Estimated Glomerular Filt Rate > 60; Glucose 108 mg/dL (65-110); Magnesium 2.0 mg/dL (1.6-2.3); Potassium 3.8 mmol/L (3.4-5.0); Sodium 139 mmol/L (137-145); Total Protein 7.6 g/dL (6.3-8.2)
--- OUTSIDE RECORDS SUMMARY | 2025-02-04 05:24 | XMS_ITS | Clinical Summary ---
Author Organization [facility] Address [address] [place] [address] Care Team Providers Care Client Support Administrator Name Role Phone Unavailable Primary Care Provider [...]
--- OUTSIDE RECORDS SUMMARY | 2025-02-04 05:24 | XMS_ITS | Clinical Summary ---
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
[2025-02-04 05:25] LABS: Thyroid Stimulating Hormone Reflex 3.860 uIU/mL (0.465-4.68)
[2025-02-04] MEDS: ONDANSETRON INJ 4 MG/2 ML VIAL IV PUSH (05:41)
[2025-02-04] MEDS: LACTATED RINGERS 1,000 ML 999 ML IV CONT ×2 (05:41)
[2025-02-04] MEDS: KETOROLAC 30 MG/ML VIAL (*BKC) IV PUSH (05:41)
--- NOTE | 2025-02-04 05:47 | ED_ITS ---
HPI - General Adult General Chief complaint: Unspecified Stated complaint: not feeling well, headache, dizziness, off balance Time Seen by Provider: 02/04/25 05:11 History of Present Illness HPI narrative: 40-year-old male with a past medical history including migraines presenting to the emergency department with various complaints including some lightheadedness, dizziness sensations, intermittent palpitations and anxiety. He also states that he had a migraine that is slowly improved throughout the day. Was supposed to be referred to a neurologist and primary doctor during his last visit during a previous ER encounter but states that he was having difficulties and needs a new referral. Patient endorses symptoms going on for several days and had similar symptoms during previous encounter on the . Patient's family endorses loss of life stressors recently including sick family members in the ICU. Patient states that he has had lots of stressors going on and working outside in the heat recently. He feels dehydrated and has been drinking alcohol throughout the weekend. Denies any chest pain, shortness a breath, abdominal pain, back pain, fever, chills. States that he has had some muscle cramping recently as well. Clinically sober and denies any drinking today. Related Data Allergies Allergy/AdvReac Type Severity Reaction Status Date / Time No Known Allergies Allergy Verified 01/28/25 12:32 Review of Systems 2 Review of Systems: As reviewed above in HPI Exam 2 Narrative: GENERAL: [Well-appearing, well-nourished, and in no acute distress.] HEAD: [Normocephalic, atraumatic.] EYES: [PERRLA and EOMI.] ENT: Nares clear, no rhinorrhea or epistaxis. Mucous membranes dry with dry tongue. NECK: Supple. CHEST: [Clear to auscultation. No respiratory distress.] HEART: [Regular rate and rhythm]. No murmur heard. [Normal peripheral pulses.] ABDOMEN: [Soft, nondistended], [nontender], [No rigidity or guarding] EXTREMITIES: Normal range of motion. [No edema.] SKIN: Warm, dry, no rash. NEURO: [No focal deficits]. Alert and oriented [x3.] PSYCH: [Normal mood and affect.] Course Vital Signs Vital signs: Vital Signs Temperature 36.6 C 02/04/25 03:58 Pulse Rate 62 02/04/25 03:58 Respiratory Rate 15 02/04/25 03:58 Blood Pressure 133/77 02/04/25 03:58 Pulse Oximetry 99 02/04/25 03:58 Oxygen Delivery Room Air 02/04/25 03:58 Temperature 36.6 C 02/04/25 03:58 Pulse Rate 64 02/04/25 04:07 Respiratory Rate 20 02/04/25 04:06 Blood Pressure 133/77 02/04/25 04:06 Pulse Oximetry 99 02/04/25 04:06 Oxygen Delivery Room Air 02/04/25 03:58 Medical Decision Making MDM Narrative Medical decision making narrative: 40-year-old male with a past medical history including migraines presenting to the emergency department with various complaints including some lightheadedness, dizziness sensations, intermittent palpitations and anxiety. He also states that he had a migraine that is slowly improved throughout the day. Was supposed to be referred to a neurologist and primary doctor during his last visit during a previous ER encounter but states that he was having difficulties and needs a new referral. Patient endorses symptoms going on for several days and had similar symptoms during previous encounter on the . Patient's family endorses loss of life stressors recently including sick family members in the ICU. Patient states that he has had lots of stressors going on and working outside in the heat recently. He feels dehydrated and has been drinking alcohol throughout the weekend. Denies any chest pain, shortness a breath, abdominal pain, back pain, fever, chills. States that he has had some muscle cramping recently as well. Clinically sober and denies any drinking today. Patient is overall well-appearing with normal vital signs here, unremarkable physical examination with normal neurological assessment. He has vague complaints but mostly concerned about his history of migraines and feeling dehydrated. Since he has been drinking throughout the weekend and not supplementing of water with a dry mucous membranes and tongue on examination he likely is dehydrated. Electrolyte abnormalities are also possible as well as some potential rhabdomyolysis from being out in the hot sun recently. Workup was ordered including CBC, CMP, CPK, magnesium level, EKG. He was given 2 L hydration. Kidney function came back normal so he was given Toradol and Zofran. Workup is unrevealing. No leukocytosis or anemia. Normal platelet count. Electrolytes are normal. Normal creatinine, normal glucose, unremarkable LFTs. Normal magnesium. Normal TSH. EKG shows sinus rhythm with benign early repolarization pattern globally. No signs of acute ischemic evidence or ectopy. Patient felt improved after hydration and remains hemodynamically stable. He will follow up with his primary care provider and neurologist and new referrals which were provided upon discharge. Medical Records Medical records reviewed: Yes I reviewed the external patient's medical records. Vital Signs Vital Signs: Vital Signs Temperature 36.6 C 02/04/25 03:58 Pulse Rate 62 02/04/25 03:58 Respiratory Rate 15 02/04/25 03:58 Blood Pressure 133/77 02/04/25 03:58 Pulse Oximetry 99 02/04/25 03:58 Oxygen Delivery Room Air 02/04/25 03:58 Temperature 36.6 C 02/04/25 03:58 Pulse Rate 64 02/04/25 04:07 Respiratory Rate 20 02/04/25 04:06 Blood Pressure 133/77 02/04/25 04:06 Pulse Oximetry 99 02/04/25 04:06 Oxygen Delivery Room Air 02/04/25 03:58 Lab Data Lab results reviewed: Yes I reviewed the patient's lab results. 02/04/25 04:27 02/04/25 04:27 Labs: Lab Results 02/04/25 Range/Units 04:27 WBC 5.7 (4.5-10.0) K/mm3 RBC 4.83 (4.6-6.20) M/mm3 Hgb 14.8 (14.0-18.0) g/dL Hct 44.4 (42.0-52.0) % MCV 91.9 (80-100) fl MCH 30.6 (26-34) pg MCHC 33.3 (32-36) g/dl RDW 13.0 (11.5-14.5) % Plt Count 212 (150-375) k/mm3 MPV 10.1 (7.4-10.4) fl Immature Gran % (Auto) 1.2 H (0-0.5) % Neut % (Auto) 51.9 (45.5-73.1) % Lymph % (Auto) 32.2 (18.3-44.2) % Darke % (Auto) 10.7 H (2.6-8.5) % Eos % (Auto) 3.3 (0-4.4) % Baso % (Auto) 0.7 (0.2-1.2) % Lymph # (Auto) 1.84 (0.9-3.2) K/mm3 Darke # (Auto) 0.6 (0.1-0.6) K/mm3 Eos # (Auto) 0.2 (0-0.3) K/mm3 Baso # (Auto) 0.0 (0.0-0.1) K/mm3 Abs Immat Gran (auto) 0.07 H (0.00-0.031) K/mm3 Absolute Neuts (auto) 3.0 (1.3-6.7) K/mm3 Absolute Nucleated RBC 0.000 (0.0-0.012) K/mm3 Nucleated RBC % 0.0 (0.0-0.2) % Sodium 139 (137-145) mmol/L Potassium 3.8 (3.4-5.0) mmol/L Chloride 106 (98-107) mmol/L Carbon Dioxide 24 (22-30) mmol/L Anion Gap 9 (4-12) mmol/L BUN 13 (9-20) mg/dL Creatinine 0.74 (0.7-1.3) mg/dL Estim Creat Clear Calc 110 ml/min Estimated GFR > 60 (59 - ) Glucose 108 (65-110) mg/dL Calcium 9.3 (8.4-10.2) mg/dL Magnesium 2.0 (1.6-2.3) mg/dL Total Bilirubin 0.8 (0.2-1.3) mg/dL AST 39 (17-59) U/L ALT 73 H (6-50) U/L Alkaline Phosphatase 73 (38-126) U/L Total Creatine Kinase Pending Total Protein 7.6 (6.3-8.2) g/dL Albumin 4.4 (3.5-5.1) g/dL TSH (Reflex) 3.860 (0.465-4.68) uIU/mL Discharge Plan Discharge Clinical Impression: Acute dehydration, Migraines Patient Disposition: Home Condition: Stable Instructions: Antibiotic Form, Dehydration (DC) Additional Instructions: All of your laboratory studies and EKG are normal. No signs of significant electrolyte derangements or muscle enzyme breakdown. You were dehydrated and provided fluid resuscitation here. Maintain oral hydration at home and refrain from sugary or alcoholic beverages. Follow-up with primary care and Neurology for further care on outpatient basis. Return with any emergencies. We have provided you new referrals. Patient Language: Jordanian Prescriptions: No Action levofloxacin 500 mg tablet 500 mg PO DAILY Qty: 10 0RF Follow-up/Referrals: Enoch Dejesus MD [Physician] - 1 Week (Migraines) Rajiv Dumas MD [Physician] - 1 Week (New PCP) Gavin Hill MD [Primary Care Provider] - Time of Disposition: 05:53
[2025-02-04 05:49] LABS: Creatine Kinase 102 U/L (55-170)
== END 2025-02-04 07:00 | disposition home or self-care (01) ==
PROVIDERS: Emergency Provider Student in an Organized Health Care Education/Training Program; PCP Family Medicine Adolescent Medicine
DX: E86.0 Dehydration (principal); G43.909 Migraine, unspecified, not intractable, without status migrainosus
CPT/HCPCS: 36415; 80053; 82550; 83735; 84443; 85025; 93005; 96361; 96374; 96375; 99284; J1885; J2405; J7120

== ENCOUNTER 2025-02-08 14:28 | Emergency (ER) | payer OTHER, SELFPAY ==
--- NOTE | ~2025-02-08 | CT_ITS ---
History: Headache PROCEDURE: CT head without contrast. COMPARISON: None TECHNIQUE: Axial imaging of the head performed from the skull base to the vertex without IV contrast. Sagittal a nd coronal reformations obtained. DLP: 681 mGy-cm FINDINGS: The ventricles are normal in size, shape and position. There is no mass, mass effect or midline shift. There is no abnormal extra-axial fluid collection or intracranial hemorrhage. Visualized paranasal sinuses are clear. The mastoid air cells are well aerated. No acute displaced fractures within the overlying cranium. Impression: No acute intracranial hemorrhage or suspicious mass effect. Reviewed, dictated and finalized at location A. Impression: No acute intracranial hemorrhage or suspicious mass effect.
--- NOTE | ~2025-02-08 | XR_ITS ---
CHEST RADIOGRAPH, PA AND LATERAL CLINICAL HISTORY: irreg hr . COMPARISON: None available TECHNIQUE: PA and lateral views of the chest. FINDINGS The cardiomediastinal silhouette is unremarkable. The lungs are clear. IMPRESSION: No focal infiltrate or effusion. Reviewed, dictated and finalized at location A.
--- OUTSIDE RECORDS SUMMARY | 2025-02-08 14:29 | XMS_ITS | Data Portability ---
Author Organization GUERA SONNYSafia Poole Address [address] [facility] [place] [address] Care Team Providers Care Advertising Inserter Name Role Phone EMIJARRETT VIDAL Primary Care Provider Assessment No assessment recorded. Plan of Treatment Reminders Order Date Submit Date Provider Last Modified By Organization Details Last Modified Time Details Appointments None recorded. Lab CBC w/ auto diff 2014 015 [facility], [address] [place] [address], [facility] [address], [place], [address], 5 06:23:55 BMP, serum or plasma 2014 015 [facility], [address] [place] [address], [address], [place], [address], 5 06:23:55 amylase + lipase, serum 2014 015 [email or web address] [facility], [address] [place] [address], [facility] [address], [place], [address], 5 10:35:20 H pylori iga Ab, serum 2014 015 [facility], [address] [place] [address], [address], [place], [address], 5 13:12:13 Referral gastroente rologist referral - 30 y/o with persistent epigastric abd pain despite treatment with PPI for over 2 months 2014 015 CHE Not available 5 18:33:38 Procedures esophagoga stroduoden oscopy with biopsy (PROC) - LUQ pain/nause a 2014 016 [email or web address] [facility] ([facility]), [address] [place], [address], 6 14:29:49 Surgeries None recorded. Imaging upper GI - persistent epigastric abdominal pain for over 2 months despite treatment with PPI 2014 015 [facility], [address], [place], [address], 5 14:38:32 Medication Orders omeprazole 20 mg tablet,del ayed release 2014 015 [facility], [address] [place] [address], [id number], 5 16:38:38 thiamine HCl (vitamin B1) 100 mg tablet 2014 015 [facility], [address] [place] [address], [id number], 5 14:58:46 omeprazole 20 mg tablet,del ayed release 2014 015 [facility], [address] [place] [address], [id number], 5 14:58:46 omeprazole 20 mg tablet,del ayed release 2014 015 [facility], [address] [place] [address], [id number], 5 14:58:46 omeprazole 20 mg tablet,del ayed release 2014 015 [facility], [address] [place] [address], [id number], 5 17:33:14 omeprazole 20 mg tablet,del ayed release 2014 015 [facility], [address] [place], [place], [id number], 5 15:01:05 Zofran 8 mg tablet 2014 015 [facility], [address] [place], [place], [id number], 5 15:01:05 Patient TargetsNo targets recorded. Patient Instructions Encounter Date Encounter Id Patient Instructions Last Modified By Organization Details Last Modified Time 10/31/2014 [id number] gastritis: instrucciones de cuidado - [gastritis: care [...] 11.0 POSIT NICHOLE >11.0 Not Available [facility] ([facility]) [address] [facility], [place], [address], 11/16/2014 13:12:13 11/14/19 15 11/15/2014 amyla se, serum or plasm a amylase, serum 44 U/L 31-124 Not Available [facility] ([facility]) [address] [facility], [place], [address], 11/16/2014 13:12:14 11/14/19 15 11/15/2014 lipas e, serum or plasm a lipase, serum 37 U/L 0-59 Not Available [facility] ([facility]) [address] [place], [address], 11/16/2014 13:12:14 01/04/20 15 01/04/2015 CBC w/ auto diff WBC 5.9 x10e3 /uL 3.4-10 .8 Not Available [facility] ([facility]) [address] [place], [address], 01/04/2015 06:23:54 01/04/20 15 01/04/2015 CBC w/ auto diff RBC 4.88 x10e6 /uL 4.14-5 .80 Not Available [facility] ([facility]) [address] [place], [address], 01/04/2015 06:23:54 01/04/20 15 01/04/2015 CBC w/ auto diff hemoglobin 14.4 g/dL 12.6-1 7.7 Not Available [facility] ([facility]) [address] [place], [address], 01/04/2015 06:23:54 01/04/20 15 01/04/2015 CBC w/ auto diff hematocrit 44.0 % 37.5-5 1.0 Not Available [facility] ([facility]) [address] [place], [address], 01/04/2015 06:23:54 01/04/20 15 01/04/2015 CBC w/ auto diff MCV 90 fL 79-97 Not Available [facility] ([facility]) [address] [place], [address], 01/04/2015 06:23:54 01/04/20 15 01/04/2015 CBC w/ auto diff MCH 29.5 pg 26.6-3 3.0 Not Available [facility] ([facility]) [address] [facility] [place], [address], 01/04/2015 06:23:54 01/04/20 15 01/04/2015 CBC w/ auto diff MCHC 32.7 g/dL 31.5-3 5.7 Not Available [facility] ([facility]) [address] [facility], [place], [address], 01/04/2015 06:23:54 01/04/20 15 01/04/2015 CBC w/ auto diff RDW 13.5 % 12.3-1 5.4 Not Available [facility] ([facility]) [address] [facility], [place], [address], 01/04/2015 06:23:54 01/04/20 15 01/04/2015 CBC w/ auto diff platelets 244 x10e3 /uL 150-37 9 Not Available [facility] ([facility]) [address] [facility], [place], [address], 01/04/2015 06:23:54 01/04/20 15 01/04/2015 CBC w/ auto diff neutrophils 57 % Not Available [facility] ([facility]) [address] [facility], [place], [address], 01/04/2015 06:23:54 01/04/20 15 01/04/2015 CBC w/ auto diff lymphs 29 % Not Available [facility] ([facility]) [address] [facility], [place], [address], 01/04/2015 06:23:54 01/04/20 15 01/04/2015 CBC w/ auto diff monocytes 9 % Not Available [facility] ([facility]) [address] [place], [address], 01/04/2015 06:23:54 01/04/20 15 01/04/2015 CBC w/ auto diff eos 4 % Not Available [facility] ([facility]) [address] [place], [address], 01/04/2015 06:23:54 01/04/20 15 01/04/2015 CBC w/ auto diff basos 1 % Not Available [facility] ([facility]) [address] [place], [address], 01/04/2015 06:23:54 01/04/20 15 01/04/2015 CBC w/ auto diff immature cells CYBER ENGINEER Not Available [facility] ([facility]) [address] [place], [address], 01/04/2015 06:23:54 01/04/20 15 01/04/2015 CBC w/ auto diff neutrophils (absolute) 3.4 x10e3 /uL 1.4-7. 0 Not Available [facility] ([facility]) [address] [place], [address], 01/04/2015 06:23:54 01/04/20 15 01/04/2015 CBC w/ auto diff lymphs (absolute) 1.7 x10e3 /uL 0.7-3. 1 Not Available [facility] ([facility]) [address] [place], [address], 01/04/2015 06:23:54 01/04/20 15 01/04/2015 CBC w/ auto diff monocytes(ab solute) 0.5 x10e3 /uL 0.1-0. 9 Not Available [facility] ([facility]) [address] [place], [address], 01/04/2015 06:23:54 01/04/20 15 01/04/2015 CBC w/ auto diff eos (absolute) 0.2 x10e3 /uL 0.0-0. 4 Not Available [facility] ([facility]) [address] [place], [address], 01/04/2015 06:23:54 01/04/20 15 01/04/2015 CBC w/ auto diff baso (absolute) 0.0 x10e3 /uL 0.0-0. 2 Not Available [facility] ([facility]) [address] [place], [address], 01/04/2015 06:23:54 01/04/20 15 01/04/2015 CBC w/ auto diff immature granulocytes 0 % Not Available [facility] ([facility]) [address] [place], [address], 01/04/2015 06:23:54 01/04/20 15 01/04/2015 CBC w/ auto diff immature grans (abs) 0.0 x10e3 /uL 0.0-0. 1 Not Available [facility] ([facility]) [address] [place], [address], 01/04/2015 06:23:54 01/04/20 15 01/04/2015 CBC w/ auto diff NRBC CYBER ENGINEER Not Available [facility] ([facility]) [address] [place], [address], 01/04/2015 06:23:54 01/04/20 15 01/04/2015 CBC w/ auto diff hematology comments: CYBER ENGINEER Not Available [facility] ([facility]) [address] [place], [address], 01/04/2015 06:23:54 01/04/20 15 01/04/2015 BMP, serum or plasm a glucose, serum 104 mg/dL 65-99 high Not Available [facility] ([facility]) [address] [place], [address], 01/04/2015 06:23:55 01/04/20 15 01/04/2015 BMP, serum or plasm a BUN 12 mg/dL 6-20 Not Available [facility] ([facility]) [address] [place], [address], 01/04/2015 06:23:55 01/04/20 15 01/04/2015 BMP, serum or plasm a creatinine, serum 0.74 mg/dL 0.76-1 .27 low Not Available [facility] ([facility]) [address] [facility], [place], [address], 01/04/2015 06:23:55 01/04/20 15 01/04/2015 BMP, serum or plasm a eGFR if nonafricn AM 123 mL/mi n/1.7 3 >59 Not Available [facility] ([facility]) [address] [facility] [place], [address], 01/04/2015 06:23:55 01/04/20 15 01/04/2015 BMP, serum or plasm a eGFR if africn AM 142 mL/mi n/1.7 3 >59 Not Available [facility] ([facility]) [address] [facility] [place], [address], 01/04/2015 06:23:55 01/04/20 15 01/04/2015 BMP, serum or plasm a BUN/creatini ne ratio 16 8-19 Not Available [facility] ([facility]) [address] [facility] [place], [address], 01/04/2015 06:23:55 01/04/20 15 01/04/2015 BMP, serum or plasm a sodium, serum 140 mmol/ L 134-14 4 Not Available [facility] ([facility]) [address] [facility] [place], [address], 01/04/2015 06:23:55 01/04/20 15 01/04/2015 BMP, serum or plasm a potassium, serum 4.2 mmol/ L 3.5-5. 2 Not Available [facility] ([facility]) [address] [facility] [place], [address], 01/04/2015 06:23:55 01/04/20 15 01/04/2015 BMP, serum or plasm a chloride, serum 102 mmol/ L 97-108 Not Available [facility] ([facility]) [address] [facility] [place], [address], 01/04/2015 06:23:55 01/04/20 15 01/04/2015 BMP, serum or plasm a carbon dioxide, total 23 mmol/ L 18-29 Not Available [facility] ([facility]) [address] [facility], [place], [address], 01/04/2015 06:23:55 01/04/20 15 01/04/2015 BMP, serum or plasm a calcium, serum 9.5 mg/dL 8.7-10 .2 Not Available [facility] ([facility]) [address] [facility], [place], [address], 01/04/2015 06:23:55 01/16/20 15 01/15/2015 upper GI No observ ation record ed. [email or web address] [facility] [address] [facility], [place], [address], 01/22/2015 17:14:38 Result Notes None recorded. Problems Name Problem SNOMED Code Status Onset Date Resolution Date Notes Provider Name and Address Organization Details Recorded Time Epigastric pain 01862079 Active Jarrett Velasco [facility] Attn: Accountin g,[address] [facility], [place], [address], [facility] 5 14:58:46 Acute gastritis 64563125 Active Jarrett Velasco [facility] Attn: Accountin g,[address] [facility], [place], [address], [facility] 5 14:58:46 Abdominal pain 30275794 Active Rizwana Salomon MD [address] [place], [address], [facility] 5 16:37:57 Nausea 720312542 Active Rizwana Salomon MD [address] [place], [address], [facility] 5 16:37:57 Problem Notes None recorded. Medical [...] Address Organization Details Last Updated DateTime 10/31/2014 08092.79 8275 g 23.4 kg/m2 174.625 cm 98.2 [degF] 124/82 mm[Hg] Jacquie Jerry [facility] 5 14:27:35 Date Recorded Body weight Body mass index (BMI) Body height Body temperature Systolic And Diastolic Provider Name and Address Organization Details Last Updated DateTime 11/13/2014 39498.60 3997 g 23.3 kg/m2 174.625 cm 98.7 [degF] 104/70 mm[Hg] Jacquie Jerry [facility] 5 16:38:28 Date Recorded Body weight Body temperature Body mass index (BMI) Body height Systolic And Diastolic Provider Name and Address Organization Details Last Updated DateTime 2015 33963.65 1685 g 97.8 [degF] 22.4 kg/m2 174.625 cm 116/72 mm[Hg] NATHANIEL Momin [facility] 5 13:02:08 Date Recorded Body height Body mass index (BMI) Body weight Heart rate Systolic And Diastolic Provider Name and Address Organization Details Last Updated DateTime 04/18/2015 172.72 cm 24.2 kg/m2 99461.82 7593 g 54 /min 116/73 mm[Hg] Aleena Beyer [facility] 04/18/2015 15:39:56 Social History Question Answer Notes LastModified by Organizat ion Details LastModified Time Tobacco Smoking Status Never Smoker Jacquie kumar [facility] 10/31/2014 14:27:35 What Is Your Level Of Caffeine Consumption? None [email or web address] Information not available 2015 How Much Tobacco Do You Chew? None Information not available 2015 What Type Of Diet Are You Following? REGULAR [email or web address] Information not available 2015 Education Less Than 8th Grade Information not available 2015 Are There Any Guns Present In Your Home? No [email or web address] Information not available 2015 Hard Of Hearing Or Deaf In One Or Both Ears? No [email or web address] Information not available 2015 Legally Blind In One Or Both Eyes? No [email or web address] Information not available 2015 Marital Status Informatio n not available 2015 Seat Belts Used Routinely Yes Information not available 2015 Smoke Alarm In Home Yes [email or web address] Information not available 2015 How Much Tobacco Do You Smoke? No Information not available 2015 General Stress Level Medium Information not available 2015 Sex: Unknown Functional Status Question Answer Note LastModified by Organizat ion Details LastModified Time What is your level of alcohol consumption? 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 Occasional [email or web address] Information not available 2015 Mental Status None [...] SNOMED-CT Code Diagnosis ICD10 Code Diagnosis Note [id number] Jason Page MD [facility] [address], [place] [address] 10/31/2014 14:17:27 11/05/2014 17:16:33 Epigastric pain 64482953 Acute gastritis 06469985 [id number] Jason Page MD [facility] [address] [place] [address] 11/13/2014 16:04:26 11/14/2014 17:47:03 Epigastric pain 37110644 take Omeprazole 20mg twice daily 1/2 hour before meals do not go to bed soon after eating avoid spicey foods, or any aggravatin g foods Acute gastritis 31131949 [id number] Jason Page MD [facility] [address] [place] [address] 2015 12:46:35 01/04/2015 14:38:31 Acute gastritis 81532261 Epigastric pain 87037870 take Omeprazole 20mg twice daily 1/2 hour before meals do not go to bed soon after eating avoid spicey foods, or any aggravatin g foods History of alcohol abuse 507042529 [id number] Rizwana Salomon MD [facility] [address] [address] 04/18/2015 15:03:50 04/22/2015 12:30:58 Abdominal pain 37826511 R10.12 Nausea 695763867 R11.0 Health Concerns Section Related Observation LastModified [...] Address Organization Details Recorded Time 10/31/2014 text/html Abdominal PainRe ported by PatientAbdominal PainFor quality, patient reportspain,bloating,a rachael,burning,sharp, andfullness. For associated symptoms, patient reportsnauseaandconsti pation. For location, patient reportsepigastric. For severity, patient reportsmild. For duration, patient reportsintermittent. For onset/timing, patient reportsbetter. For context, patient reportsfood. For modifying factors, patient reportsmoving bowelsandbelching.ROS as noted in the HPI He use to drink a lot of beers and spicy foods especially in the weekend. However, he has stopped for the last month. He feels hungry but cant eat secondary to getting mid epigastric tenderness. Hi s/s present for 1 week. He has not tried any medications at home. Denies blood in the stool or per os. ELA Padilla Attn: Accounting,[address] [place], [address], [facility] 10/31/2014 15:01:15 11/13/2014 text/html ROS as noted in the HPI epigastric pain, gastritis f/u; a little better but still has symptoms especially early am. However, he has only been taking the capsule once daily . Has a lot of heartburn. ELA Padilla Attn: Accounting,[address] [place], [address], [facility] 11/14/2014 13:44:15 2015 text/html ROS as noted in the HPI Gastritis F/u- States that he is no [...] He stopped alcohol intake 3 months ago. LOAN Padilla Attn: Accounting,[address] [facility], [place], [address], [facility] 2015 14:59:48 04/18/2015 text/html Abdominal PainRe ported by PatientAbdominal PainFor quality, patient reportspainanddull. For associated symptoms, patient reportsnausea. For location, patient reportsluq. For severity, patient reportspain level 5/10. For onset/timing, patient reportsbetter. For modifying factors, patient reportseating. Symptoms better when alcohol use is reduced. UGI revealed GERD and H/H. Better on PPI but sx persist. Rizwana Salomon MD [address] [place], [address], [facility] 04/18/2015 16:38:33
--- OUTSIDE RECORDS SUMMARY | 2025-02-08 14:30 | XMS_ITS | Clinical Summary ---
Author Organization [facility] Address [address] [place] [address] Care Team Providers Care Catering Barista Name Role Phone Unavailable Primary Care Provider [...]
--- OUTSIDE RECORDS SUMMARY | 2025-02-08 14:30 | XMS_ITS | Data Portability ---
Author Organization [place] - [facility], Main Office Address [address] [place] [id number] Assessment No assessment recorded. Plan of Treatment Reminders Order Date Submit Date Provider Last Modified By Organization Details Last Modified Time Details Appointments None recorded. Lab CMP, serum or plasma 2024 025 [facility] [address] [place] [address], [address], 12:20:41 CBC w/ auto diff 2024 025 [facility] ([place]), [address] [place] [address], [address], 12:20:41 TSH, ultra-sensi tive, serum 2024 025 [facility] [place], [address], 12:20:44 HbA1c (hemoglobin A1c), blood 2024 025 [place] [facility] [address] [place] [address], [address], 5 12:20:43 lipid panel, serum 2024 025 [place] [facility] [address] [place] [address], [address], 5 12:20:42 urinalysis, dipstick 2024 025 [facility] [address], [address], [place], [address], 15:00:22 lipase, serum or plasma 2024 025 [place] [facility] ([place]), [address], [place], [address], 12:20:44 Referral None recorded. Procedures None recorded. Surgeries None recorded. Imaging None recorded. Medication Orders omeprazole 20 mg capsule,del ayed release 2024 025 [facility] [address], [address], [place], [place], [id number], 14:36:34 Patient TargetsNo targets recorded. Patient Instructions Encounter Date Encounter Id Patient Instructions Last Modified By Organization Details Last Modified Time 01/22/2025 [id number] headache: care instructions [email or web address] Not available 01/22/2025 14:35:34 high blood pressure: care instructions [email or web address] Not available 01/22/2025 14:36:10 Reason for Referral None Reported. Results Created Date Observation Date Name Description Value Unit Range Abnormal Flag Note LastModifiedBy Organization Detail LastModifiedTime 01/23/2001/23/2025 CBC WITH DIFFE RENTI AL/PL ATELE T WBC 5.7 x10e3 /uL 3.4-10 .8 normal Not Available [facility] ([facility]) [address], [place], [address], 01/23/2025 12:20:41 01/23/20 25 01/23/2025 CBC WITH DIFFE RENTI AL/PL ATELE T RBC 5.24 x10e6 /uL 4.14-5 .80 normal Not Available [facility] ([facility]) [address], [place], [address], 01/23/2025 12:20:41 01/23/20 25 01/23/2025 CBC WITH DIFFE RENTI AL/PL ATELE T hemoglobin 16.1 g/dL 13.0-1 7.7 normal Not Available [facility] ([facility]) [address] [place], [address], 01/23/2025 12:20:41 01/23/20 25 01/23/2025 CBC WITH DIFFE RENTI AL/PL ATELE T hematocrit 50.0 % 37.5-5 1.0 normal Not Available [facility] ([facility]) [address] [place], [address], 01/23/2025 12:20:41 01/23/20 25 01/23/2025 CBC WITH DIFFE RENTI AL/PL ATELE T MCV 95 fL 79-97 normal Not Available [facility] ([facility]) [address], [place], [address], 01/23/2025 12:20:41 01/23/20 25 01/23/2025 CBC WITH DIFFE RENTI AL/PL ATELE T MCH 30.7 pg 26.6-3 3.0 normal Not Available [facility] ([facility]) [address] [place], [address], 01/23/2025 12:20:41 01/23/20 25 01/23/2025 CBC WITH DIFFE RENTI AL/PL ATELE T MCHC 32.2 g/dL 31.5-3 5.7 normal Not Available [facility] ([facility]) [address] [place], [address], 01/23/2025 12:20:41 01/23/20 25 01/23/2025 CBC WITH DIFFE RENTI AL/PL ATELE T RDW 13.2 % 11.6-1 5.4 Not Available [facility] ([facility]) [address] [place], [address], 01/23/2025 12:20:41 01/23/20 25 01/23/2025 CBC WITH DIFFE RENTI AL/PL ATELE T platelets 246 x10e3 /uL 150-45 0 normal Not Available [facility] ([facility]) [address], [place], [address], 01/23/2025 12:20:41 01/23/20 25 01/23/2025 CBC WITH DIFFE RENTI AL/PL ATELE T neutrophils 56 % not estab. normal Not Available [facility] ([facility]) [address], [place], [address], 01/23/2025 12:20:41 01/23/20 25 01/23/2025 CBC WITH DIFFE RENTI AL/PL ATELE T lymphs 30 % not estab. normal Not Available [facility] ([facility]) [address], [place], [address], 01/23/2025 12:20:41 01/23/20 25 01/23/2025 CBC WITH DIFFE RENTI AL/PL ATELE T monocytes 10 % not estab. normal Not Available [facility] ([facility]) [address], [place], [address], 01/23/2025 12:20:41 01/23/20 25 01/23/2025 CBC WITH DIFFE RENTI AL/PL ATELE T eos 2 % not estab. normal Not Available [facility] ([facility]) [address], [place], [address], 01/23/2025 12:20:41 01/23/20 25 01/23/2025 CBC WITH DIFFE RENTI AL/PL ATELE T basos 1 % not estab. normal Not Available [facility] ([facility]) [address], [place], [address], 01/23/2025 12:20:41 01/23/20 25 01/23/2025 CBC WITH DIFFE RENTI AL/PL ATELE T immature cells PRIZE FIGHTER Not Available [facility] ([facility]) [address], [place], [address], 01/23/2025 12:20:41 01/23/20 25 01/23/2025 CBC WITH DIFFE RENTI AL/PL ATELE T neutrophils (absolute) 3.2 x10e3 /uL 1.4-7. 0 normal Not Available [facility] ([facility]) [address] [place], [address], 01/23/2025 12:20:41 01/23/20 25 01/23/2025 CBC WITH DIFFE RENTI AL/PL ATELE T lymphs (absolute) 1.7 x10e3 /uL 0.7-3. 1 normal Not Available [facility] ([facility]) [address] [place], [address], 01/23/2025 12:20:41 01/23/20 25 01/23/2025 CBC WITH DIFFE RENTI AL/PL ATELE T monocytes(ab solute) 0.6 x10e3 /uL 0.1-0. 9 normal Not Available [facility] ([facility]) [address] [place], [address], 01/23/2025 12:20:41 01/23/20 25 01/23/2025 CBC WITH DIFFE RENTI AL/PL ATELE T eos (absolute) 0.1 x10e3 /uL 0.0-0. 4 normal Not Available [facility] ([facility]) [address] [place], [address], 01/23/2025 12:20:41 01/23/20 25 01/23/2025 CBC WITH DIFFE RENTI AL/PL ATELE T baso (absolute) 0.0 x10e3 /uL 0.0-0. 2 normal Not Available [facility] ([facility]) [address] [place], [address], 01/23/2025 12:20:41 01/23/20 25 01/23/2025 CBC WITH DIFFE RENTI AL/PL ATELE T immature granulocytes 1 % not estab. Not Available [facility] ([facility]) [address], [place], [address], 01/23/2025 12:20:41 01/23/20 25 01/23/2025 CBC WITH DIFFE RENTI AL/PL ATELE T immature grans (abs) 0.1 x10e3 /uL 0.0-0. 1 Not Available [facility] ([facility]) [address], [place], [address], 01/23/2025 12:20:41 01/23/20 25 01/23/2025 CBC WITH DIFFE RENTI AL/PL ATELE T NRBC PRIZE FIGHTER Not Available [facility] ([facility]) [address], [place], [address], 01/23/2025 12:20:41 01/23/20 25 01/23/2025 CBC WITH DIFFE RENTI AL/PL ATELE T hematology comments: PRIZE FIGHTER Not Available [facility] ([facility]) [address], [place], [address], 01/23/2025 12:20:41 01/23/20 25 01/23/2025 COMP. METAB OLIC PANEL (14) glucose 84 mg/dL 70-99 normal Not Available [facility] ([facility]) [address], [place], [address], 01/23/2025 12:20:41 01/23/20 25 01/23/2025 COMP. METAB OLIC PANEL (14) BUN 23 mg/dL 6-24 normal Not Available [facility] ([facility]) [address], [place], [address], 01/23/2025 12:20:41 01/23/20 25 01/23/2025 COMP. METAB OLIC PANEL (14) creatinine 1.00 mg/dL 0.76-1 .27 normal Not Available [facility] ([facility]) [address] [place], [address], 01/23/2025 12:20:41 01/23/20 25 01/23/2025 COMP. METAB OLIC PANEL (14) eGFR 97 mL/mi n/1.7 3 >59 normal Not Available [facility] ([facility]) [address], [place], [address], 01/23/2025 12:20:41 01/23/20 25 01/23/2025 COMP. METAB OLIC PANEL (14) BUN/creatini ne ratio 23 9-20 above high normal Not Available [facility] ([facility]) [address], [place], [address], 01/23/2025 12:20:41 01/23/20 25 01/23/2025 COMP. METAB OLIC PANEL (14) sodium 142 mmol/ L 134-14 4 normal Not Available [facility] ([facility]) [address], [place], [address], 01/23/2025 12:20:41 01/23/20 25 01/23/2025 COMP. METAB OLIC PANEL (14) potassium 4.7 mmol/ L 3.5-5. 2 normal Not Available [facility] ([facility]) [address], [place], [address], 01/23/2025 12:20:41 01/23/20 25 01/23/2025 COMP. METAB OLIC PANEL (14) chloride 104 mmol/ L 96-106 normal Not Available [facility] ([facility]) [address], [place], [address], 01/23/2025 12:20:41 01/23/20 25 01/23/2025 COMP. METAB OLIC PANEL (14) carbon dioxide, total 21 mmol/ L 20-29 normal Not Available [facility] ([facility]) [address], [place], [address], 01/23/2025 12:20:41 01/23/20 25 01/23/2025 COMP. METAB OLIC PANEL (14) calcium 9.9 mg/dL 8.7-10 .2 normal Not Available [facility] ([facility]) [address] [place], [address], 01/23/2025 12:20:41 01/23/20 25 01/23/2025 COMP. METAB OLIC PANEL (14) protein, total 7.7 g/dL 6.0-8. 5 normal Not Available [facility] ([facility]) [address], [place], [address], 01/23/2025 12:20:41 01/23/20 25 01/23/2025 COMP. METAB OLIC PANEL (14) albumin 4.9 g/dL 4.1-5. 1 normal Not Available [facility] ([facility]) [address] [place], [address], 01/23/2025 12:20:41 01/23/20 25 01/23/2025 COMP. METAB OLIC PANEL (14) globulin, total 2.8 g/dL 1.5-4. 5 Not Available [facility] ([facility]) [address] [place], [address], 01/23/2025 12:20:41 01/23/20 25 01/23/2025 COMP. METAB OLIC PANEL (14) bilirubin, total 0.5 mg/dL 0.0-1. 2 normal Not Available [facility] ([facility]) [address] [place], [address], 01/23/2025 12:20:41 01/23/20 25 01/23/2025 COMP. METAB OLIC PANEL (14) alkaline phosphatase 95 IU/L 44-121 normal Not Available [facility] ([facility]) [address] [place], [address], 01/23/2025 12:20:41 01/23/20 25 01/23/2025 COMP. METAB OLIC PANEL (14) AST (SGOT) 36 IU/L 0-40 normal Not Available [facility] ([facility]) [address] [place], [address], 01/23/2025 12:20:41 01/23/20 25 01/23/2025 COMP. METAB OLIC PANEL (14) ALT (SGPT) 40 IU/L 0-44 normal Not Available [facility] ([facility]) [address] [place], [address], 01/23/2025 12:20:41 01/23/20 25 01/23/2025 LIPID PANEL W/ CHOL/ HDL RATIO cholesterol, total 224 mg/dL 100-19 9 above high normal Not Available [facility] ([facility]) [address] [place], [address], 01/23/2025 12:20:42 01/23/20 25 01/23/2025 LIPID PANEL W/ CHOL/ HDL RATIO triglyceride s 109 mg/dL 0-149 normal Not Available [facility] ([facility]) [address] [place], [address], 01/23/2025 12:20:42 01/23/20 25 01/23/2025 LIPID PANEL W/ CHOL/ HDL RATIO HDL cholesterol 61 mg/dL >39 normal Not Available [facility] ([facility]) [address] [place], [address], 01/23/2025 12:20:42 01/23/20 25 01/23/2025 LIPID PANEL W/ CHOL/ HDL RATIO VLDL cholesterol juaquin 19 mg/dL 5-40 Not Available [facility] ([facility]) [address] [place], [address], 01/23/2025 12:20:42 01/23/20 25 01/23/2025 LIPID PANEL W/ CHOL/ HDL RATIO LDL chol calc ([facility]) 144 mg/dL 0-99 above high normal Not Available [facility] ([facility]) [address] [place], [address], 01/23/2025 12:20:42 01/23/20 25 01/23/2025 LIPID PANEL W/ CHOL/ HDL RATIO LDL calc comment: PRIZE FIGHTER Not Available [facility] ([facility]) [address] [place], [address], 01/23/2025 12:20:42 01/23/20 25 01/23/2025 LIPID PANEL W/ CHOL/ HDL RATIO T. chol/HDL ratio 3.7 ratio 0.0-5. 0 T. Chol/ HDL Ratio Men Women 1/2 Avg.R isk 3.4 3.3 Avg.R isk 5.0 4.4 2X Avg.R isk 9.6 7.1 3X Avg.R isk 23.4 11.0 Not Available [facility] ([facility]) [address] [place], [address], 01/23/2025 12:20:42 01/23/20 25 01/23/2025 HEMOG LOBIN A1C hemoglobin A1C 5.8 % 4.8-5. 6 above high normal Predi abete s: 5.7 - 6.4 Diabe feroz: >6.4 Glyce gino contr ol for adult s with diabe feroz: <7.0 Not Available [facility] ([facility]) [address] [place], [address], 01/23/2025 12:20:43 01/23/20 25 01/23/2025 TSH TSH 2.080 uIU/m L 0.450- 4.500 normal Not Available [facility] ([facility]) [address] [place], [address], 01/23/2025 12:20:43 01/23/20 25 01/23/2025 LIPAS E lipase 28 U/L 13-78 normal Not Available [facility] ([facility]) [address] [place], [address], 01/23/2025 12:20:44 01/23/20 25 01/22/2025 urina lysis , dipst ick Color Yellow Not Available [facility] [address], [place], [address], 01/22/2025 14:18:59 01/23/20 25 01/22/2025 urina lysis , dipst ick Appearance Clear Not Available [facility] [address], [place], [address], 01/22/2025 14:18:59 01/23/20 25 01/22/2025 urina lysis , dipst ick Leukocytes negati ve Not Available [facility] [address], [place], [address], 01/22/2025 14:18:59 01/23/20 25 01/22/2025 urina lysis , dipst ick Nitrites negati ve Not Available [facility] [address], [place], [address], 01/22/2025 14:18:59 01/23/20 25 01/22/2025 urina lysis , dipst ick Urobilinogen Normal (0.2) Not Available [facility] [address], [place], [address], 01/22/2025 14:18:59 01/23/20 25 01/22/2025 urina lysis , dipst ick Protein negati ve Not Available [facility] [address] [facility], [place], [address], 01/22/2025 14:18:59 01/23/20 25 01/22/2025 urina lysis , dipst ick pH 6.5 Not Available [facility] [address] [facility], [place], [address], 01/22/2025 14:18:59 01/23/20 25 01/22/2025 urina lysis , dipst ick Blood negati ve Not Available [facility] [address] [facility], [place], [address], 01/22/2025 14:18:59 01/23/2001/22/2025 urina lysis , dipst ick Specific [place] 1.015 Not Available [facility] [address] [facility], [place], [address], 01/22/2025 14:18:59 01/23/20 25 01/22/2025 urina lysis , dipst ick Ketone negati ve Not Available [facility] [address] [facility], [place], [address], 01/22/2025 14:18:59 01/23/20 25 01/22/2025 urina lysis , dipst ick Bilirubin negati ve Not Available [facility] [address] [facility], [place], [address], 01/22/2025 14:18:59 01/23/2001/22/2025 urina lysis , dipst ick Glucose negati ve Not Available [facility] [address] [facility], [place], [address], 01/22/2025 14:18:59 Result Notes None recorded. 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 Procedures Surgical History Date Name Laterality Status Provider Name and Address Organization Details Recorded Time no surgical history completed Marnie Willson MD [address], [place], [address], [facility] 01/22/2025 14:16:25 Imaging Results None recorded. [...] Address Organization Details Last Updated DateTime 5 63484.9 6 g 25.6 kg/m2 172.72 cm 20 /min 97.8 [degF] 98 % 98 % 80 /min 142/84 mm[Hg] Shanell Farmer er [facility] 14:05:22 Social History Question Answer Notes LastModified by Organizat ion Details LastModified Time Tobacco Smoking Status Former Smoker SocialHist oryQuestio n: 'Tobacco Use/Smokin g'; SocialHist oryRespons e: 'Are you a: light tobacco smoker'; Shanell Garcia null, [place] - [facility] 01/22/2025 14:03:41 What Is Your Level Of Caffeine Consumption? Occasional [email or web address] Information not available 01/22/2025 What Type Of Diet Are You Following? REGULAR [email or web address] Information not available 01/22/2025 When Did You Quit Smoking? 1-5yearssincel louise Quit 2022 [email or web address] Information not available 01/22/2025 Cigar Smoking No Informat ion not available 01/22/2025 What Was The Date Of Your Most Recent Tobacco Screening? 01/22/2025 Information not available 01/22/2025 What Is Your Current Pack Years? 10-19packyears [email or web address] Information not available 01/22/2025 What Is Your Relationship Status? [email or web address] Information not available 01/22/2025 How Much Tobacco [...] a heavier drinker, but cut back 06/2024 [email or web address] Information not available 01/22/2025 Do you use any illicit or recreational drugs? No [email or web address] Information not available 01/22/2025 Do you or have you ever used any other forms of tobacco or nicotine? No SocialHist oryQuestio n: 'Tobacco use other than smoking'; SocialHist oryRespons e: 'Are you an other tobacco user? No'; [email or web address] Information not available 07/12/2024 What is your level of alcohol consumption? Occasional [email or web address] Information not available 01/22/2025 Mental Status None [...] SNOMED-CT Code Diagnosis ICD10 Code Diagnosis Note [id number] Marnie Willson MD [facility] [address] [place] [address] 01/22/2025 14:00:06 01/22/2025 14:45:38 Physical examination 9714205 Z00.00 Routine age-approp riate anticipato ry guidance [...] were answered to his satisfacti on. Heartburn 51129084 R12 Acute headache 629229277 R51.9 Health Concerns Section Related Observation LastModified by Organization Detai ls LastModified Time None Recorded Concern Status LastModified by Organization Details LastModified Time None Recorded Advance Directives Directive None Recorded Payers Insurance Date Sequence Insurance Name Policy Number Policy Lau Covered Member ID Lau Member ID Guarantor Name 01/22/2025 [facility] 42 AND 110 - ALL - PLAN PARTICIPANT - (MOVED-BILLED) UNKNOWN Héctor Ochoa NO_INS_NU ELYSEER_DAVID Weaver 01/22/2025 [place] [address] AND 110 - ALL - PLAN PARTICIPANT - (MOVED-BILLED) UNKNOWN Héctor Ochoa NO_INS_NU MBER_AVAI LABLE [place] Weaver 01/22/2025 [place] [address] AND 110 - ALL - PLAN PARTICIPANT - (MOVED-BILLED) UNKNOWN Héctor Ochoa Weaver UNKNOWN [place] Weaver 01/22/2025 [place] [address] AND 110 - ALL - PLAN PARTICIPANT - (MOVED-BILLED) UNKNOWN Héctor Ochoa Weaver UNKNOWN [place] Weaver 01/22/2025 [place] [address] AND 110 - ALL - PLAN PARTICIPANT - (MOVED-BILLED) UNKNOWN Héctor Ochoa Weaver UNKNOWN [place] 01/22/2025 [place] [address] AND 110 - ALL - PLAN PARTICIPANT - (MOVED-BILLED) UNKNOWN [place] UNKNOWN [place] 01/22/2025 [place] [address] AND 110 - ALL - PLAN PARTICIPANT - (MOVED-BILLED) UNKNOWN Héctor Ochoa Weaver UNKNOWN [place] 01/22/2025 1 *SELF PAY* UNKNOWN [place] UNKNOWN [place] 01/22/2025 1 *SELF PAY* UNKNOWN [place] UNKNOWN [place] 01/22/2025 [place] [address] AND 110 - ALL - PLAN PARTICIPANT - (MOVED-BILLED) UNKNOWN [place] Weaver UNKNOWN [place] 01/22/2025 [place] [address] AND 110 - ALL - PLAN PARTICIPANT - (MOVED-BILLED) UNKNOWN Héctor Ochoa Weaver NO_INS_NU MBER_AVAI LABANA LILIA [place] Weaver 01/22/2025 [place] [address] AND 110 - ALL - PLAN PARTICIPANT - (MOVED-BILLED) UNKNOWN Héctor Championrera UNKNOWN Héctor Weaver Notes Date Note Type Note Provider Name and Address Organization Details Recorded Time 01/22/2025 text/html ROS as noted in the HPI He is here for a physical exam. [...] weakness with these headaches. He has tried ookl-ttc-enmljus Tylenol with partial relief. He denies history [...] frequent breakthrough heartburn. He has been trying xmzq-hcg-[id number] Tums with only partial relief. He had some sort of imaging test several years ago and was told he had some kind of hernia. Marnie Willson MD [address], [place], [address], [place] [facility] [place] 01/28/2025 10:01:15
--- OUTSIDE RECORDS SUMMARY | 2025-02-08 14:30 | XMS_ITS | Clinical Summary ---
Author Organization [facility] Address [address] [place] [address] Care Team Providers Care Quotation Clerk Name Role Phone Unavailable Primary Care Provider [...] Immunization (#1) 2024 SARS-COV-2 Immunization (2 - season) 2024 09/22/2020 Respiratory Syncytial Virus (RSV) [...]
--- NOTE | 2025-02-08 14:43 | ECG_ITS ---
Test Date: 2025-02-08 14:48:23 Measurements Intervals Industry Rate: 57 P: 67 IA: 185 QRS: 59 QRSD: 104 T: 30 QT: 391 QTc: 384 Interpretive Statements SINUS BRADYCARDIA ST ELEVATION, PROBABLY EARLY REPOLARIZATION [ST ELEVATION WITH NORMALLY INFLECTED T WAVE] Compared to ECG 02/04/2025 04:31:08 ST (T wave) deviation now present Early repolarization now present Electronically Signed On 02-09-2025 18:41:18 CDT by Romero Bullock M.D.
[2025-02-08 14:50] VITALS: BP 119/72; PULSE 56; RESP 18; TEMP 36.7; O2SAT 100
[2025-02-08 15:03] LABS: Hematocrit 43.9 % (42.0-52.0); Hemoglobin 14.8 g/dL (14.0-18.0); Immature Granulocyte Percent A 0.8 % (0-0.5); Lymphocytes Absolute Auto 1.78 K/mm3 (0.9-3.2); Mean Corpuscular HGB Conc 33.7 g/dl (32-36); Mean Corpuscular Hemoglobin 30.9 pg (26-34); Mean Corpuscular Volume 91.6 fl (80-100); Nucleated Red Blood Cells Absolute Auto 0.000 K/mm3 (0.0-0.012); Nucleated Red Blood Cells Perc 0.0 % (0.0-0.2); Platelet Count Result 212 k/mm3 (150-375); Red Blood Count 4.79 M/mm3 (4.6-6.20); White Blood Count 6.5 K/mm3 (4.5-10.0)
--- NOTE | 2025-02-08 15:09 | ED_ITS ---
HPI - Headache General Chief Complaint: Arrhythmia/Palpitations <Diane Chapman AUTO FLEET MANAGER - Last Filed: 02/11/25 19:02> Stated Complaint: Headaches, irregular HR <Diane Chapman APRN - Last Filed: 02/11/25 19:02> Time Seen by Provider: 02/08/25 15:00 <Diane Chapman AUTO FLEET MANAGER - Last Filed: 02/11/25 19:02> Focused HPI: Patient is a 40-year-old male who presents to the ER with a headache that has been present for approximately 3 weeks. He reports he has a primary care provider who prescribed him with ?migraine medicine.Patient reports the medication has not been helping. He reports he has come into the ER twice in the last 3 weeks for heart palpitations and headache. Patient endorses intermittent visual changes. He denies any nausea vomiting, one-sided weakness/numbness/tingling, caffeine use, alcohol use, or illicit drug use. Patient denies any other medical history relevant to this ER visit. GENERAL: Well-appearing, well-nourished, and in no acute distress. HEAD: Normocephalic, atraumatic. CHEST: Clear to auscultation. ?No respiratory distress. HEART: Regular rate and rhythm.? NEURO: ?Alert and oriented x3. Patient screened in triage and initial orders placed.? ?Additional care and disposition to be based upon?diagnostic testing and treatment. <Diane Chapman AUTO FLEET MANAGER - Last Filed: 02/11/25 19:02> Related Data Allergies/Adverse Reactions: Allergies Allergy/AdvReac Type Severity Reaction Status Date / Time No Known Allergies Allergy Verified 02/08/25 18:02 <Diane Chapman AUTO FLEET MANAGER - Last Filed: 02/11/25 19:02> PMFSH Past Medical History Medical History: Medical History BMI 25.0-25.9,adult <Diane Chapman AUTO FLEET MANAGER - Last Filed: 02/11/25 19:02> Family History Family History: Family History Father Migraine Mother No problems noted. Sibling No problems noted. <Diane Chapman, AUTO FLEET MANAGER - Last Filed: 02/11/25 19:02> Social History Social History: Social History Smoking status: Former smoker Second hand tobacco smoke exposure: No Alcohol intake: current Substance use: never Substance use type: does not use Do You Feel Safe in your Home?: Yes Lack of Transportation: No Lack of Food: Never True Current Housing: I Have Housing Concerned About Future Housing: No Difficulty Paying Gas/Electric Bills: No Difficulty Paying for Meds: No Currently Unemployed: No Education: High School Diploma/GED Difficulty w/ Childcare or Family Care: No Living arrangements: with family Occupation/Education: occupation 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[employer] Gender identity (if verbalized by the patient): Male <Diane Chapman, AUTO FLEET MANAGER - Last Filed: 02/11/25 19:02> Course Vital Signs Vital signs: Vital Signs Temperature 36.7 C 02/08/25 14:50 Pulse Rate 56 L 02/08/25 14:50 Respiratory Rate 18 02/08/25 14:50 Blood Pressure 119/72 02/08/25 14:50 Pulse Oximetry 100 02/08/25 14:50 Oxygen Delivery Room Air 02/08/25 14:50 Temperature 36.7 C 02/08/25 16:34 Pulse Rate 57 L 02/08/25 19:29 Respiratory Rate 19 02/08/25 19:29 Blood Pressure 125/75 02/08/25 19:29 Pulse Oximetry 99 02/08/25 19:29 Oxygen Delivery Room Air 02/08/25 14:50 <Diane Chapman, AUTO FLEET MANAGER - Last Filed: 02/11/25 19:02> Vital Signs Temperature 36.7 C 02/08/25 14:50 Pulse Rate 56 L 02/08/25 14:50 Respiratory Rate 18 02/08/25 14:50 Blood Pressure 119/72 02/08/25 14:50 Pulse Oximetry 100 02/08/25 14:50 Oxygen Delivery Room Air 02/08/25 14:50 Temperature 36.7 C 02/08/25 16:34 Pulse Rate 57 L 02/08/25 19:29 Respiratory Rate 19 02/08/25 19:29 Blood Pressure 125/75 02/08/25 19:29 Pulse Oximetry 99 02/08/25 19:29 Oxygen Delivery Room Air 02/08/25 14:50 <Abilio Alexander MD - Last Filed: 02/12/25 07:18> MDM - Headache Differential Diagnosis Differential diagnosis: Likely tension headache, subarachnoid hemorrhage, sinusitis and other ( anxiety like symptoms) <Abilio Alexander MD - Last Filed: 02/12/25 07:18> Medical Records Attestation: I reviewed the patient's medical records. <Abilio Alexander MD - Last Filed: 02/12/25 07:18> Lab Data Attestation: I reviewed the patient's lab results. <Abilio Alexander MD - Last Filed: 02/12/25 07:18> Result diagrams: 02/08/25 14:54 02/08/25 14:54 <Diane Chapman APRN - Last Filed: 02/11/25 19:02> Labs: Lab Results 02/08/25 02/08/25 02/08/25 Range/Units 14:54 16:41 17:50 WBC 6.5 (4.5-10.0) K/mm3 RBC 4.79 (4.6-6.20) M/mm3 Hgb 14.8 (14.0-18.0) g/dL Hct 43.9 (42.0-52.0) % MCV 91.6 (80-100) fl MCH 30.9 (26-34) pg MCHC 33.7 (32-36) g/dl RDW 12.8 (11.5-14.5) % Plt Count 212 (150-375) k/mm3 MPV 10.3 (7.4-10.4) fl Immature Gran % (Auto) 0.8 H (0-0.5) % Neut % (Auto) 59.9 (45.5-73.1) % Lymph % (Auto) 27.4 (18.3-44.2) % [place] % (Auto) 8.9 H (2.6-8.5) % Eos % (Auto) 2.5 (0-4.4) % Baso % (Auto) 0.5 (0.2-1.2) % Lymph # (Auto) 1.78 (0.9-3.2) K/mm3 [place] # (Auto) 0.6 (0.1-0.6) K/mm3 Eos # (Auto) 0.2 (0-0.3) K/mm3 Baso # (Auto) 0.0 (0.0-0.1) K/mm3 Abs Immat Gran (auto) 0.05 H (0.00-0.031) K/mm3 Absolute Neuts (auto) 3.9 (1.3-6.7) K/mm3 Absolute Nucleated RBC 0.000 (0.0-0.012) K/mm3 Nucleated RBC % 0.0 (0.0-0.2) % PT 12.7 (11.1-14.7) Seconds INR 1.0 APTT 24.5 (22.3-36.8) Seconds Sodium 136 L (137-145) mmol/L Potassium 4.2 (3.4-5.0) mmol/L Chloride 102 (98-107) mmol/L Carbon Dioxide 26 (22-30) mmol/L Anion Gap 8 (4-12) mmol/L BUN 16 (9-20) mg/dL Creatinine 0.79 (0.7-1.3) mg/dL Estim Creat Clear Calc 104 ml/min Estimated GFR > 60 (59 - ) Glucose 105 (65-110) mg/dL Calcium 9.5 (8.4-10.2) mg/dL Total Bilirubin 0.5 (0.2-1.3) mg/dL AST 36 (17-59) U/L ALT 61 H (6-50) U/L Alkaline Phosphatase 78 (38-126) U/L Total Creatine Kinase 75 (55-170) U/L Troponin I < 0.012 < 0.012 (0.000-0.034) ng/mL Total Protein 7.7 (6.3-8.2) g/dL Albumin 4.5 (3.5-5.1) g/dL Lipase 69 (23-300) U/L TSH (Reflex) 2.090 (0.465-4.68) uIU/mL Urine Color Yellow (Yellow) Urine Appearance Clear (Clear) Urine pH 5.5 (5.0-9.0) Ur Specific [place] 1.012 (1.001-1.035) Urine Protein Negative (Negative) mg/dL Urine Glucose (UA) Negative (Negative) mg/dL Urine Ketones Negative (Negative) mg/dL Ur Blood (Man) Negative (Negative) Urine Nitrate Negative (Negative) Urine Bilirubin Negative (Negative) Urine Urobilinogen 0.2 (<2.0) mg/dL Leukocyte Esterase Rfl Negative (Negative) [place]/UL Urine Opiates Screen Negative (Negative) Urine Methadone Screen Negative (Negative) Ur Barbiturates Screen Negative (Negative) Ur Phencyclidine Scrn Negative (Negative) Ur Amphetamine Screen Negative (Negative) U Benzodiazepines Scrn Negative (Negative) Urine Cocaine Screen Negative (Negative) U Cannabinoids Screen Negative (Negative) Ethyl Alcohol < 10 (<10) mg/dL <Diane Chapman, AUTO FLEET MANAGER - Last Filed: 02/11/25 19:02> Lab Results 02/08/25 02/08/25 02/08/25 Range/Units 14:54 16:41 17:50 WBC 6.5 (4.5-10.0) K/mm3 RBC 4.79 (4.6-6.20) M/mm3 Hgb 14.8 (14.0-18.0) g/dL Hct 43.9 (42.0-52.0) % MCV 91.6 (80-100) fl MCH 30.9 (26-34) pg MCHC 33.7 (32-36) g/dl RDW 12.8 (11.5-14.5) % Plt Count 212 (150-375) k/mm3 MPV 10.3 (7.4-10.4) fl Immature Gran % (Auto) 0.8 H (0-0.5) % Neut % (Auto) 59.9 (45.5-73.1) % Lymph % (Auto) 27.4 (18.3-44.2) % [place] % (Auto) 8.9 H (2.6-8.5) % Eos % (Auto) 2.5 (0-4.4) % Baso % (Auto) 0.5 (0.2-1.2) % Lymph # (Auto) 1.78 (0.9-3.2) K/mm3 [place] # (Auto) 0.6 (0.1-0.6) K/mm3 Eos # (Auto) 0.2 (0-0.3) K/mm3 Baso # (Auto) 0.0 (0.0-0.1) K/mm3 Abs Immat Gran (auto) 0.05 H (0.00-0.031) K/mm3 Absolute Neuts (auto) 3.9 (1.3-6.7) K/mm3 Absolute Nucleated RBC 0.000 (0.0-0.012) K/mm3 Nucleated RBC % 0.0 (0.0-0.2) % PT 12.7 (11.1-14.7) Seconds INR 1.0 APTT 24.5 (22.3-36.8) Seconds Sodium 136 L (137-145) mmol/L Potassium 4.2 (3.4-5.0) mmol/L Chloride 102 (98-107) mmol/L Carbon Dioxide 26 (22-30) mmol/L Anion Gap 8 (4-12) mmol/L BUN 16 (9-20) mg/dL Creatinine 0.79 (0.7-1.3) mg/dL Estim Creat Clear Calc 104 ml/min Estimated GFR > 60 (59 - ) Glucose 105 (65-110) mg/dL Calcium 9.5 (8.4-10.2) mg/dL Total Bilirubin 0.5 (0.2-1.3) mg/dL AST 36 (17-59) U/L ALT 61 H (6-50) U/L Alkaline Phosphatase 78 (38-126) U/L Total Creatine Kinase 75 (55-170) U/L Troponin I < 0.012 < 0.012 (0.000-0.034) ng/mL Total Protein 7.7 (6.3-8.2) g/dL Albumin 4.5 (3.5-5.1) g/dL Lipase 69 (23-300) U/L TSH (Reflex) 2.090 (0.465-4.68) uIU/mL Urine Color Yellow (Yellow) Urine Appearance Clear (Clear) Urine pH 5.5 (5.0-9.0) Ur Specific [place] 1.012 (1.001-1.035) Urine Protein Negative (Negative) mg/dL Urine Glucose (UA) Negative (Negative) mg/dL Urine Ketones Negative (Negative) mg/dL Ur Blood (Man) Negative (Negative) Urine Nitrate Negative (Negative) Urine Bilirubin Negative (Negative) Urine Urobilinogen 0.2 (<2.0) mg/dL Leukocyte Esterase Rfl Negative (Negative) [place]/UL Urine Opiates Screen Negative (Negative) Urine Methadone Screen Negative (Negative) Ur Barbiturates Screen Negative (Negative) Ur Phencyclidine Scrn Negative (Negative) Ur Amphetamine Screen Negative (Negative) U Benzodiazepines Scrn Negative (Negative) Urine Cocaine Screen Negative (Negative) U Cannabinoids Screen Negative (Negative) Ethyl Alcohol < 10 (<10) mg/dL <Abilio Alexander MD - Last Filed: 02/12/25 07:18> Imaging Data Radiologist's impression: CT head without contrast showed no acute abnormality Chest x-ray showed no acute abnormality <Abilio Alexander MD - Last Filed: 02/12/25 07:18> Critical Care Time Critical Care Time Critical Care Time: No <Abilio Alexander MD - Last Filed: 02/12/25 07:18> Discharge Plan Discharge Clinical Impression: Headache, Palpitation <Diane Chapman APRN - Last Filed: 02/11/25 19:02> Patient Disposition: Home <Diane Chapman APRN - Last Filed: 02/11/25 19:02> Condition: Stable <Diane Chapman APRN - Last Filed: 02/11/25 19:02> Instructions: Heart Palpitations (DC), Acute Headache (DC) <Diane Chapman APRN - Last Filed: 02/11/25 19:02> Patient Language: Latvian <Diane Chapman APRN - Last Filed: 02/11/25 19:02> Prescriptions: No Action nortriptyline 25 mg capsule 25 mg PO QHS Qty: 30 0RF sumatriptan succinate 50 mg tablet See Rx Instructions PO .COMPLEX Qty: 14 0RF Rx Instructions: take 1 tab at onset of headache; if no relief may repeat 1 tab after at least 2 hrs; max = 4 tabs/24 hr PO <Diane Chapman APRN - Last Filed: 02/11/25 19:02> Follow-up/Referrals: Walker,Marnie L., AUTO FLEET MANAGER [Primary Care Provider] - <Diane Chapman APRN - Last Filed: 02/11/25 19:02> Stand Alone Forms: Work/School Release IP <Diane Chapman APRN - Last Filed: 02/11/25 19:02>
[2025-02-08 15:24] LABS: Alanine Aminotransferase 61 U/L (6-50); Albumin Level 4.5 g/dL (3.5-5.1); Alkaline Phosphatase 78 U/L (38-126); Anion Gap 8 mmol/L (4-12); Aspartate Amino Transferase 36 U/L (17-59); Bilirubin,Total 0.5 mg/dL (0.2-1.3); Blood Urea Nitrogen 16 mg/dL (9-20); Calcium 9.5 mg/dL (8.4-10.2); Carbon Dioxide 26 mmol/L (22-30); Chloride 102 mmol/L (98-107); Estimated CRCL calculation 104 ml/min; Estimated Glomerular Filt Rate > 60; Glucose 105 mg/dL (65-110); Lipase 69 U/L (23-300); Potassium 4.2 mmol/L (3.4-5.0); Sodium 136 mmol/L (137-145); Total Protein 7.7 g/dL (6.3-8.2)
[2025-02-08 15:30] LABS: INR 1.0; Partial Thromboplastin Time 24.5 Seconds (22.3-36.8); Prothrombin Time 12.7 Seconds (11.1-14.7)
[2025-02-08 15:36] LABS: Troponin I < 0.012 ng/mL (0.000-0.034)
[2025-02-08 16:34] VITALS: BP 117/66; PULSE 56; TEMP 36.7; O2SAT 100
[2025-02-08 16:54] LABS: Add Urine Microscopic? NO; Appearance Urine Clear (Clear); Glucose Urine UA Negative (Negative); Leukocyte Esterase Ur Negative LEU/UL (Negative); Nitrate Urine Negative (Negative); Specific Grav Ur 1.012 (1.001-1.035)
--- NOTE | 2025-02-08 17:39 | ECG_ITS ---
Test Date: 2025-02-08 17:42:48 Measurements Intervals [place] Rate: 52 P: 76 RI: 188 QRS: 53 QRSD: 109 T: 31 QT: 408 QTc: 380 Interpretive Statements SINUS BRADYCARDIA ST ELEVATION, PROBABLY EARLY REPOLARIZATION [ST ELEVATION WITH NORMALLY INFLECTED T WAVE] Compared to ECG 02/08/2025 14:48:23 No significant changes Electronically Signed On 02-09-2025 18:46:48 CDT by Romero Bullock M.D.
[2025-02-08 17:44] LABS: Cannabinoid Screen Urine Negative (Negative)
[2025-02-08 18:03] VITALS: BP 129/78; PULSE 60; RESP 18; O2SAT 100
--- OUTSIDE RECORDS SUMMARY | 2025-02-08 18:19 | XMS_ITS | Clinical Summary ---
Author Organization [facility] Address [address] [place] [id number] Care Team Providers Care Actuarial Intern Name Role Phone Unavailable Primary Care Provider [...] Virus (HCV) Screening 1984 TdaP Immunization 1984 Human Papillomavirus (HPV) Immunization (1 - Male 3-dose series) 01/02/1999 Hepatitis B Immunization (1 of 3 - 19+ 3-dose series) 01/02/2003 SARS-COV-2 Immunization ( season) 2024 09/22/2020 Influenza Immunization (#1) 2025 Respiratory Syncytial Virus (RSV) Immunization (Adult) (1 [...]
--- OUTSIDE RECORDS SUMMARY | 2025-02-08 18:19 | XMS_ITS | Clinical Summary ---
Author Organization [facility] Address [address] [place] [id number] Care Team Providers Care Pier Master Assistant Name Role Phone Unavailable Primary Care Provider [...]
[2025-02-08 18:20] VITALS: PULSE 58
[2025-02-08 18:22] LABS: Troponin I < 0.012 ng/mL (0.000-0.034)
--- NOTE | 2025-02-08 18:22 | ED.ARRPALP ---
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 INTERMITTENT DIZZINESS FOR FEW SECONDS, LATELY BEEN FEELING WEAK AND TIRED, THE ABOVE SYMPTOM GETS BETTER AND TYLENOL AND IBUPROFEN. WAS SEEN IN OUR EMERGENCY ROOM TWICE IN THE LAST 2 WEEKS WAS SEEN BY HIS FAMILY PHYSICIAN RECENTLY AND STARTED HIM ON MIGRAINE HEADACHE. CURRENTLY PATIENT IS ASYMPTOMATIC LAYING DOWN IN BED, COMFORTABLE DENYING ANY FEVER, CHILLS, NAUSEA, VOMITING, HEADACHE, CHEST PAIN, SHORTNESS OF BREATH, BACK PAIN OR ABDOMINAL PAIN. MD complaint: skipped beats and irregular heart beat Related Data Allergies Allergy/AdvReac Type Severity Reaction Status Date / Time No Known Allergies Allergy Verified 02/08/25 18:02 Review of Systems Review of Systems: All systems reviewed & are unremarkable except as noted in HPI and below PMFSH Past Medical History Medical History BMI 25.0-25.9,adult Family History Family History Father Migraine Mother No problems noted. Sibling No problems noted. 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 MUSCULOSKELETAL: NORMAL RANGE OF MOTION, NONTENDER BACK NEUROLOGIC: ALERT AND ORIENTED ?3, BODY LINE FINISHER IS NORMAL TESTED, NO GROSS MOTOR DEFICIT Course Vital Signs Vital signs: Vital Signs Temperature 36.7 C 02/08/25 14:50 Pulse Rate 56 L 02/08/25 14:50 Respiratory Rate 18 02/08/25 14:50 Blood Pressure 119/72 02/08/25 14:50 Pulse Oximetry 100 02/08/25 14:50 Oxygen Delivery Room Air 02/08/25 14:50 Temperature 36.7 C 02/08/25 16:34 Pulse Rate 58 L 02/08/25 18:20 Respiratory Rate 18 02/08/25 18:03 Blood Pressure 129/78 02/08/25 18:03 Pulse Oximetry 100 02/08/25 18:03 Oxygen Delivery Room Air 02/08/25 14:50 MDM - Arrhythmia/Palpitations MDM Narrative Medical decision making narrative: PATIENT PRESENTS WITH MULTIPLE SYMPTOMS INCLUDING HEADACHE, WEAKNESS, TIREDNESS, PALPITATION, DIZZINESS. 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 VITAL SIGNS ARE STABLE PHYSICAL EXAMINATION IS UNREMARKABLE DIFFERENTIAL DIAGNOSIS INCLUDE HEAT ILLNESS RELATED SYMPTOMS, ANXIETY, DEPRESSION, ELECTROLYTE IMBALANCE, DEHYDRATION, TENSION HEADACHE. BLOOD WORKUP TODAY INCLUDES CBC, CMP, TROPONIN, CK SHOWED INSIGNIFICANT ABNORMALITIES URINALYSIS SHOWED NO ACUTE ABNORMALITIES URINE DRUG SCREEN SHOWED NO ACUTE ABNORMALITY CHEST X-RAY SHOWED NO ACUTE ABNORMALITY CT HEAD WITHOUT CONTRAST SHOWED NO ACUTE ABNORMALITIES EKG ON ARRIVAL SHOWED SINUS BRADYCARDIA AT 57 BEATS PER MINUTE, EARLY REPOLARIZATION CRITERIA, Differential Diagnosis Differential diagnosis: Likely palpitations, anxiety, artial fibrillation, artial flutter, ventricular premature beats and supraventricular tachycardia Medical Records Attestation: I reviewed the patient's medical records. Lab Data Attestation: I reviewed the patient's lab results. 02/08/25 14:54 02/08/25 14:54 Labs: Lab Results 02/08/25 02/08/25 02/08/25 Range/Units 14:54 16:41 17:50 WBC 6.5 (4.5-10.0) K/mm3 RBC 4.79 (4.6-6.20) M/mm3 Hgb 14.8 (14.0-18.0) g/dL Hct 43.9 (42.0-52.0) % MCV 91.6 (80-100) fl MCH 30.9 (26-34) pg MCHC 33.7 (32-36) g/dl RDW 12.8 (11.5-14.5) % Plt Count 212 (150-375) k/mm3 MPV 10.3 (7.4-10.4) fl Immature Gran % (Auto) 0.8 H (0-0.5) % Neut % (Auto) 59.9 (45.5-73.1) % Lymph % (Auto) 27.4 (18.3-44.2) % [place] % (Auto) 8.9 H (2.6-8.5) % Eos % (Auto) 2.5 (0-4.4) % Baso % (Auto) 0.5 (0.2-1.2) % Lymph # (Auto) 1.78 (0.9-3.2) K/mm3 [place] # (Auto) 0.6 (0.1-0.6) K/mm3 Eos # (Auto) 0.2 (0-0.3) K/mm3 Baso # (Auto) 0.0 (0.0-0.1) K/mm3 Abs Immat Gran (auto) 0.05 H (0.00-0.031) K/mm3 Absolute Neuts (auto) 3.9 (1.3-6.7) K/mm3 Absolute Nucleated RBC 0.000 (0.0-0.012) K/mm3 Nucleated RBC % 0.0 (0.0-0.2) % PT 12.7 (11.1-14.7) Seconds INR 1.0 APTT 24.5 (22.3-36.8) Seconds Sodium 136 L (137-145) mmol/L Potassium 4.2 (3.4-5.0) mmol/L Chloride 102 (98-107) mmol/L Carbon Dioxide 26 (22-30) mmol/L Anion Gap 8 (4-12) mmol/L BUN 16 (9-20) mg/dL Creatinine 0.79 (0.7-1.3) mg/dL Estim Creat Clear Calc 104 ml/min Estimated GFR > 60 (59 - ) Glucose 105 (65-110) mg/dL Calcium 9.5 (8.4-10.2) mg/dL Total Bilirubin 0.5 (0.2-1.3) mg/dL AST 36 (17-59) U/L ALT 61 H (6-50) U/L Alkaline Phosphatase 78 (38-126) U/L Total Creatine Kinase Pending Troponin I < 0.012 < 0.012 (0.000-0.034) ng/mL Total Protein 7.7 (6.3-8.2) g/dL Albumin 4.5 (3.5-5.1) g/dL Lipase 69 (23-300) U/L Urine Color Yellow (Yellow) Urine Appearance Clear (Clear) Urine pH 5.5 (5.0-9.0) Ur Specific [place] 1.012 (1.001-1.035) Urine Protein Negative (Negative) mg/dL Urine Glucose (UA) Negative (Negative) mg/dL Urine Ketones Negative (Negative) mg/dL Ur Blood (Man) Negative (Negative) Urine Nitrate Negative (Negative) Urine Bilirubin Negative (Negative) Urine Urobilinogen 0.2 (<2.0) mg/dL Leukocyte Esterase Rfl Negative (Negative) [place]/UL Urine Opiates Screen Negative (Negative) Urine Methadone Screen Negative (Negative) Ur Barbiturates Screen Negative (Negative) Ur Phencyclidine Scrn Negative (Negative) Ur Amphetamine Screen Negative (Negative) U Benzodiazepines Scrn Negative (Negative) Urine Cocaine Screen Negative (Negative) U Cannabinoids Screen Negative (Negative) Ethyl Alcohol Pending Imaging Data Radiologist's impression: Impressions Chest X-Ray 02/08/25 15:30 IMPRESSION: No focal infiltrate or effusion. Head CT 02/08/25 15:31 Impression: No acute intracranial hemorrhage or suspicious mass effect. ECG Data EKG #1: Attestation: I personally reviewed and interpreted this ECG as follows: ECG completion date: 02/08/25 Prior ECG tracings: available for review Interpretation: SINUS BRADYCARDIA AT 57 BEATS PER MINUTE, LAE RIB RISE A SHUNT CRITERIA, OTHERWISE NO SIGNIFICANT CHANGES COMPARED TO LAST EKG ON FEBRUARY 04, 2025 Critical Care Time Critical Care Time Critical Care Time: No Discharge Plan Discharge Clinical Impression: Headache, Palpitation Patient Disposition: Home Condition: Stable Instructions: Heart Palpitations (DC), Acute Headache (DC) Patient Language: Northern Irish Prescriptions: No Action nortriptyline 25 mg capsule 25 mg PO QHS Qty: 30 0RF sumatriptan succinate 50 mg tablet See Rx Instructions PO .COMPLEX Qty: 14 0RF Rx Instructions: take 1 tab at onset of headache; if no relief may repeat 1 tab after at least 2 hrs; max = 4 tabs/24 hr PO Follow-up/Referrals: Marnie Iglesias, KAYLEIGH [Primary Care Provider] -
[2025-02-08 18:51] LABS: Creatine Kinase 75 U/L (55-170)
[2025-02-08 19:28] VITALS: BP 125/75; PULSE 57; RESP 19; O2SAT 99
[2025-02-08 19:29] VITALS: BP 125/75; PULSE 57; RESP 19; O2SAT 99
[2025-02-08 20:13] LABS: Thyroid Stimulating Hormone Reflex 2.090 uIU/mL (0.465-4.68)
== END 2025-02-08 19:32 | disposition home or self-care (01) ==
PROVIDERS: Emergency Medicine; Registered Nurse; Emergency Provider Emergency Medicine; PCP Nurse Practitioner Family
DX: R51.9 Headache, unspecified (principal); R00.2 Palpitations; Z87.891 Personal history of nicotine dependence; R00.1 Bradycardia, unspecified; R94.31 Abnormal electrocardiogram [ECG] [EKG]
CPT/HCPCS: 36415; 70450; 71046; 80053; 80307; 81003; 82077; 82550; 83690; 84443; 84484; 85025; 85610; 85730; 93005; 99284

== ENCOUNTER 2025-03-07 16:00 | Outpatient (CLI) | payer OTHER, SELFPAY ==
--- NOTE | ~2025-03-07 | MR_ITS ---
MRI of the brain Clinical History: Migraine headache Technique: Axial and sagittal T1-weighted images were acquired. These were followed by axial T2-weighted, diffusion weighted, gradient, and FLAIR images. Findings: No acute infarct, intracranial hemorrhage or mass lesion seen. There is a small chronic lacunar infarct versus dilated perivascular space in the right basal ganglia region. Ventricles and subarachnoid spaces are otherwise unremarkable. Orbits are unremarkable. Paranasal sinuses and mastoid air cells are clear. Major intracranial flow voids are intact. Sagittal midline structures are intact. IMPRESSION: Small chronic lacunar infarct versus dilated perivascular space in the right basal ganglia. No other significant findings. Reviewed, dictated and finalized at location . IMPRESSION: Small chronic lacunar infarct versus dilated perivascular space in the right ba alex ganglia. No other significant findings.
== END 2025-03-07 16:01 | disposition home or self-care (01) ==
LOC: MICIMG 16:02
PROVIDERS: PCP Nurse Practitioner Family; Visit Provider Nurse Practitioner Family
DX: G43.109 Migraine with aura, not intractable, without status migrainosus (principal)
CPT/HCPCS: 70551

== ENCOUNTER 2025-05-10 15:08 | Outpatient (CLI) | payer OTHER, SELFPAY ==
--- NOTE | ~2025-05-10 | US_ITS ---
Clinical History: I63.81 - Other cerebral infarction due to occlusion or st... Examination: US carotid duplex BI Comparison: None Technique: Grayscale, color, duplex/spectral Doppler sonography carotid and vertebral arteries. Distal CCA and Peak ICA systolic velocities provided. Society of Radiologists in Ultrasound (SRU) consensus criteria utilized, indirectly assessing stenosis by velocities. Findings: No plaque noted. Right side: CCA - 147 cm/sec. ICA - 82 cm/sec. ICA/CCA - 0.6 Left Side: CCA - 119 cm/sec. ICA - 88 cm/sec. ICA/CCA - 0.7 Normal antegrade flow measured bilateral vertebral arteries. IMPRESSION: 1. No hemodynamically significant ICA stenosis (i.e., if any stenosis, less than 50%). 2. Normal bilateral antegrade vertebral artery flow. Stenosis measured by Society of Radiologists in Ultrasound (SRU) criteria. Reviewed, dictated and finalized at location R. IMPRESSION: 1. No hemodynamically significant ICA stenosis (i.e., if any stenosis, less th an 50%). 2. Normal bilateral antegrade vertebral artery flow. Stenosis measured by Society of Radiologists in Ultrasound (SRU) criteria.
--- OUTSIDE RECORDS SUMMARY | 2025-05-10 15:13 | XMS_ITS | Clinical Summary ---
Author Organization [facility] Address [address] [place] [id number] Care Team Providers Care Core Machine Tender Name Role Phone Unavailable Primary Care Provider [...] of 3 - 19+ 3-dose series) 01/02/2003 Human Papillomavirus (HPV) Immunization (1 - 3-dose SCDM series) 01/02/2011 Influenza Immunization (#1) 2025 SARS-COV-2 Immunization ( season) 2025 09/22/2020 Respiratory Syncytial Virus (RSV) Immunization (Adult) [...]
--- OUTSIDE RECORDS SUMMARY | 2025-05-10 15:13 | XMS_ITS | Clinical Summary ---
Author Organization [facility] Address [address] [place] [id number] Care Team Providers Care Bar Waiter/Waitress Name Role Phone Unavailable Primary Care Provider [...] 3-dose SCD M series) 01/02/2011 COVID-19 Vaccine (2024-2 6 season) 2025 Influenza Adult (#1) 2025 Hepatitis A Vaccines Aged Out No long er eligible based on patient's age to complete this topic Meningococcal B Vaccine Aged Out No l [...]
== END 2025-05-10 15:09 | disposition home or self-care (01) ==
PROVIDERS: PCP Nurse Practitioner Family; Visit Provider Psychiatry & Neurology Neurology
DX: I63.81 Other cerebral infarction due to occlusion or stenosis of small artery (principal); G43.909 Migraine, unspecified, not intractable, without status migrainosus
CPT/HCPCS: 93880